=== PATIENT | male | born 1995 | race Caucasian/White ===

== ENCOUNTER 2017-03-06 22:52 | Emergency (ER) | payer OTHER ==
[~2017-03-06] VITALS: Ht 195.6 cm; Wt 73.6 kg
[~2017-03-06 22:52] MED LIST: NOMED
[2017-03-06 23:15] VITALS: BP 116/71; PULSE 94; RESP 16; O2SAT 100
--- NOTE | 2017-03-07 00:09 | ED.REPORT ---
HPI-Psychiatric Illness Date of Service Mar 07, 2017 ED Provider: Miky Mills MD Pt is a 22 y/o male with no previous psychiatric diagnosis presenting to the ED with his father for a mental health evaluation. Two months ago, the patient took LSD before and flew over to [place]. In [place], he was hospitalized for what sound like a first episode of bipolar disorder at which time he was experiencing hallucinations, aggression, insomnia, lisette. He was admitted to a psych unit and stabilized. The patient was discharged on Depakote , Risperidone, and Trazodone. He was doing well and taking college courses again. 3-4 weeks ago, he experienced slurred speech and constipation which was thought to be due to his Risperidone and his dose was reduced to one third of the prior. For the past 3 days, he is experiencing a similar manic episode and is experiencing delusions, aggressive behavior towards his father (pushing and shoving), auditory and visual hallucination, and insomnia. The patient states that he "wants to not be consumed by the music, but to guide the music". His goal tonight is to sleep on his own and to "go to happy places with happy thoughts and remember his dreams". He denies illicit drug or alcohol use. There are no medical complaints. Nursing Notes Stated Complaint: MENTAL HEALTH BIPOLAR Chief Complaint: Psychiatric Complaint Nursing Notes Reviewed: Yes Allergies: Coded Allergies: lactose (Verified Allergy, Unknown, 03/06/17) Miscellaneous Medications No Historical Medication (No Historical Medication) Ea General Time Seen by MD: 23:29 Chief Complaint Other (mental health eval) Hx Obtained From: Patient, Other family... (Father) Arrived By: Walk-in Onset Occurred: 3 days ago Symptom Duration: Since onset Severity: Current: No pain currently Severity: Maximum: No pain Associated with: Reports: Delusions Recent Healthcare: Recent doctor visit Similar Sx Previous: Yes Risk-Psychiatric Illness Suicide Risk Stratification RF Statements: Risk factors N/A Past Medical History Past Medical History No official psychiatric diagnosis Past Surgical History RT hand surgery Family History Bipolar disorder. Smoking History Former Smoker Social History Alcohol Use: Denies alcohol use Drug Use: Denies drug use Other Social History: Good social support Ambulatory Status Independent Review of Systems Psychiatric: Reports: Change mental status, Delusional, Hallucinations, auditory, Hallucinations, visual, Hostile, Insomnia Complete sys rev & neg: except as marked. Physical Exam Initial Vital Signs Vital Signs (First) Date Time Temp Pulse Resp B/P Pulse Ox O2 Delivery O2 Flow Rate FiO2 03/06/17 23:15 36.5 94 16 116/71 100 Room Air Initial VS: Reviewed, Vital signs normal Head / Eyes: Atraumatic, Normocephalic, PERRL Neck: Supple, Full range of motion Respiratory: No respiratory distress Cardiovascular: Intact distal pulses Abdomen / GI: No distention Extremities: Vascular intact, Neuro intact, No swelling, No tenderness Skin: Warm, Dry, No cyanosis General/Constitutional: Awake, Alert, Cooperative Drowsy, arousable Neurologic: Oriented X3, Speech NL, No motor deficits, No sensory deficits Psychiatric: Affect NL, Not suicidal, Not homicidal Abnormal Thinking / Perception: Positive: Tangential thinking Re-Eval/Medical Decision Med Decision/Clinical Course 22-year-old with apparent bipolar disorder recent onset, presents now with increasing delusional behavior and some mild aggression towards his father. He is voluntary patient with no suicidality or homicidality. They are advised to return in the morning for follow-up ulcers social science instructor here. They are advised to return promptly if any change in his status occurs and he should become suicidal or homicidal. Otherwise he will present during business hours for psychiatric evaluation with social science instructor. Source of Hx: Old records, Family Re-Evaluation/Progress : Time of Eval: 00:25 Re-Evaluation/Progress Note: Pt rechecked. Discussed diagnosis. Informed the pt and his father of the plan to discharge; both understand and agree with plan. F/U instructions and RTER warning given. All questions addressed. Counseled Regarding: Diagnosis, Need for follow-up, When/why to return to ED Discharge & Departure Impression: Primary Impression: Bipolar mood disorder Active/Remission status: currently active Current bipolar episode type: manic Current episode severity: mild Qualified Code: F31.11 - Bipolar disorder, current episode manic without psychotic features, mild Additional Impressions: Insomnia Insomnia type: due to other mental disorder Qualified Code: F51.05 - Insomnia due to other mental disorder Psychosis Psychosis type: unspecified psychosis type Qualified Code: F29 - Unspecified psychosis not due to a substance or known physiological condition )( Condition at Discharge: No danger to self, No danger to others Disposition: Home Discharge Condition All VS Reviewed: Yes Condition: Stable Patient Instructions: Bipolar Disorder (ED) Additional Instructions: Return any time if the situation changes or becomes unstable. Return here tomorrow morning at 10 AM for social service evaluation. They can facilitate your evaluation at [facility] or arrange inpatient admission if that is appropriate. Good luck. Referrals: Antonella Garrido MD (PCP) Scribe Attestation Portions of this note were transcribed by Xavi Tim and Sunny Marrufo. I, personally performed the history, physical exam and medical decision- making;I reviewed and confirmed the accuracy of the information in the transcribed note. Signed by Xavi Tim and Sunny Marrufo, [place]. 03/06/17 0030 copies to: Antonella Garrido MD, Christopher W MD Mar 07, 2017 00:09 Xavi Tim Mar 07, 2017 00:17 SUNNY MARRUFO Mar 07, 2017 00:47
[2017-03-07] MEDS ORDERED: LORazepam 2 mg Tablet PO ONE (00:20)
[2017-03-07 00:38] VITALS: BP 117/74; PULSE 78; RESP 16; O2SAT 100
[2017-03-07] MEDS ORDERED: TRAZ-115 PO (11:37)
[2017-03-07] MEDS ORDERED: RISP4TAB2 PO (11:37)
[2017-03-07] MEDS ORDERED: DEP500ER PO (11:37)
[2017-03-07] MEDS ORDERED: QUET50TA55 PO (13:40)
[2017-03-07] MEDS ORDERED: DIVA500T14 PO (13:40)
[2017-03-07] MEDS ORDERED: RISP1TAB3 PO (13:40)
== END 2017-03-07 00:40 | disposition home or self-care (01) ==
LOC: SED 22:52
DX: F31.11 Bipolar disorder, current episode manic without psychotic features, mild (principal); F51.05 Insomnia due to other mental disorder; F29 Unspecified psychosis not due to a substance or known physiological condition; Z87.891 Personal history of nicotine dependence; E73.9 Lactose intolerance, unspecified

== ENCOUNTER 2017-03-07 10:35 | Emergency (ER) | payer OTHER ==
[~2017-03-07] VITALS: Ht 195.6 cm; Wt 72.7 kg
[2017-03-07 10:58] VITALS: BP 119/82; PULSE 96; RESP 16; O2SAT 97
[2017-03-07 11:18] VITALS: BP 119/82; PULSE 96; RESP 16; O2SAT 97
[2017-03-07] MEDS ORDERED: DEP500ER PO (11:37)
[2017-03-07] MEDS ORDERED: TRAZ-115 PO (11:37)
[2017-03-07] MEDS ORDERED: RISP4TAB2 PO (11:37)
--- NOTE | 2017-03-07 12:17 | ED.REPORT ---
HPI-Psychiatric Illness Date of Service Mar 07, 2017 ED Provider: Eleonora Paige MD History of Present Illness: Seen last night Pt is a 22 y/o male with no previous psychiatric diagnosis presenting to the ED with his father for a mental health evaluation. Two months ago, the patient took LSD before and flew over to [place]. In [place], he was hospitalized for what sound like a first episode of bipolar disorder at which time he was experiencing hallucinations, aggression, insomnia, lisette. He was admitted to a psych unit and stabilized. The patient was discharged on Depakote, Risperidone, and Trazodone. He was doing well and taking college courses again. 3-4 weeks ago, he experienced slurred speech and constipation which was thought to be due to his Risperidone and his dose was reduced to one third of the prior. For the past 3 days, he is experiencing a similar manic episode and is experiencing delusions, aggressive behavior towards his father (pushing and shoving), auditory and visual hallucination, and insomnia. The patient states that he "wants to not be consumed by the music, but to guide the music". His goal tonight is to sleep on his own and to "go to happy places with happy thoughts and remember his dreams". He denies illicit drug or alcohol use. There are no medical complaints. 22-year-old with apparent bipolar disorder recent onset, presents now with increasing delusional behavior and some mild aggression towards his father. He is voluntary patient with no suicidality or homicidality. They are advised to return in the morning for follow-up with social work associate here. They are advised to return promptly if any change in his status occurs and he should become suicidal or homicidal. Otherwise he will present during business hours for psychiatric evaluation with social work associate. Presents to the ED today for help as above. 22 year old male with recent diagnoses of bipolar disorder and schizophrenia presents to the ER accompanied by his father per discharge instructions to return for blood work today. He was seen last night in the department for 3 days of insomnia, and is still unable to sleep. Patient lives at home with his father and is followed by [facility], but has been experiencing difficulty arranging an appointment with a psychologist or psychiatrist. However, he has now gone through the initial evaluation at [facility] and is scheduled for an appointment next week, but he states this date is too far out due to the severity of his recent manic and depressive episodes and his ongoing insomnia. Father lowered patient's Risperidone dose was lowered from 1mg to 0.5mg in the morning, and from 3mg to 1mg at night due to adverse side effects. He also takes Depakote 500mg daily. Nursing Notes Stated Complaint: BLOOD WORK Chief Complaint: General Complaint Nursing Notes Reviewed: Yes Allergies: Coded Allergies: lactose (Verified Allergy, Unknown, 03/06/17) Scheduled Divalproex ER (Depakote ER) 500 Mg Tablet 500 MG PO DAILY *DAILY USE ONLY* Swallowed whole without chewing to avoid local irritation of the mouth and throat. Divalproex ER (Divalproex ER) 500 Mg Tab.er.24h 500 MG PO BID *DAILY DOSING ONLY* Swallowed whole without chewing to avoid local irritation of the mouth and throat. Quetiapine Fumarate (Quetiapine Fumarate) 50 Mg Tablet 50-100 MG PO HS Risperidone (Risperidone) 4 Mg Tablet 4 MG PO DAILY Risperidone (Risperidone) 1 Mg Tablet 1-3 MG PO HS Trazodone (Trazodone) 50 Mg Tablet 50 MG PO HS Miscellaneous Medications No Historical Medication (No Historical Medication) Ea General Time Seen by MD: 12:13 Chief Complaint Other (Insomnia) Hx Obtained From: Patient Arrived By: Walk-in Onset Occurred: 3 days ago Symptom Duration: Since onset Related History: Reports: Bipolar disorder, Schizophrenia Recent Healthcare: Recent doctor visit Similar Sx Previous: Yes Risk-Psychiatric Illness Suicide Risk Stratification Suicide Risk Factors - Adult: : Prior psych admission RF Statements: Risk factors reviewed Past Medical History Past Medical History Bipolar disorder Schizophrenia Past Surgical History RT hand surgery Family History Bipolar disorder. Smoking History Former Smoker Social History Alcohol Use: Denies alcohol use Drug Use: Denies drug use Other Social History: Good social support Ambulatory Status Independent Review of Systems Review of Systems Note: +Lisette Psychiatric: Reports: Delusional, Depression, Insomnia, Denies: Homicidal ideation, Hostile, Suicidal ideation, Unable to control self Complete sys rev & neg: except as marked. Physical Exam Initial Vital Signs Vital Signs (First) Date Time Temp Pulse Resp B/P Pulse Ox O2 Delivery O2 Flow Rate FiO2 03/07/17 10:58 96 16 119/82 97 Room Air Initial VS: Reviewed Head / Eyes: Atraumatic, Normocephalic Neck: Supple, Non-tender, Full range of motion Abdomen / GI: Soft, Non-tender, No guarding, No rebound, No distention Extremities: Vascular intact, Neuro intact, No swelling, No tenderness Skin: Warm, Dry, No cyanosis General/Constitutional: Awake, Alert, Well appearing, Well developed, Well nourished Neurologic: Oriented X3, Speech NL, No motor deficits, No sensory deficits Psychiatric: Not suicidal, Not homicidal Abnormal Mood/Affect: Positive: Flat affect Somewhat tangential, but redirectable. Cooperative. ENT: Airway patent, Mucous membranes moist Respiratory / Chest: Breath sounds NL, Breath sounds = bilat, No respiratory distress, No rales, No rhonchi, No wheezing Cardiovascular: Heart rate NL, Regular rhythm, Heart sounds NL, Peripheral circulation NL Interpretation & Diagnostics Lab Results Interpretation Result Diagram: 03/07/17 1230 03/07/17 1230 Test 03/07/17 12:30 White Blood Count 6.3th/mm3 (3.8-10.1) Red Blood Count 4.61mil/mm3 (4.40-5.80) Hemoglobin 13.3g/dL (13.8-17.2) Hematocrit 40.4% (41.0-50.0) Mean Corpuscular Volume 87.6fL (81-100) Mean Corpuscular Hemoglobin 28.9pg (27.0-35.0) Mean Corpuscular Hemoglobin Concent 32.9% (32.0-37.0) Red Cell Distribution Width 12.9% (12.3-15.4) Platelet Count 173bil/L (150-400) Neutrophils (%) (Auto) 59.1% (40-74) Lymphocytes (%) (Auto) 27.7% (14-46) Monocytes (%) (Auto) 10.8% (4-12) Eosinophils (%) (Auto) 1.9% (0-5) Basophils (%) (Auto) 0.3% (0-3) Hold Urine Received (Received) Sodium Level 138mEq/L (134-144) Potassium Level 4.6mEq/L (3.5-5.2) Chloride Level 100mEq/L (97-108) Carbon Dioxide Level 21mmol/L (18-29) Blood Urea Nitrogen 8mg/dL (6-20) Creatinine 0.78mg/dL (0.76-1.27) Estimat Glomerular Filtration Rate 135mL/min (>59) Glucose Level 101mg/dL (60-99) Calcium Level 9.5mg/dL (8.5-10.1) Total Bilirubin 0.6mg/dL (0.0-1.2) Aspartate Amino Transf (AST/SGOT) 19U/L (0-50) Alanine Aminotransferase (ALT/SGPT) 8U/L (0-44) Alkaline Phosphatase 51U/L (25-150) Total Protein 7.3g/dL (6.4-8.4) Albumin 4.5g/dL (3.4-5.0) Thyroid Stimulating Hormone (TSH) 2.240uIU/mL (0.450-4.500) Hold Humphrey Top Tube Received (Received) Valproic Acid (Depakene) Level 52ug/mL (50-125) Re-Eval/Medical Decision Source of Hx: Old records Re-Evaluation/Progress : Time of Eval: 13:45 Re-Evaluation/Progress Note: Patient is happy with the plan and talking with our director social welfare. Resources will be given. Return precautions given. All other questions addressed. Counseled Regarding: Diagnosis, Lab results, Need for follow-up, When/why to return to ED Discharge & Departure Impression: Primary Impression: Bipolar mood disorder Additional Impression: Insomnia )( Condition at Discharge: No danger to self, No danger to others, No suicidal ideation, No homicidal ideation Disposition: Home Discharge Condition All VS Reviewed: Yes Condition: Stable Patient Instructions: Bipolar Disorder (DC) Additional Instructions: I'm sorry it has been so difficult to get to the care you need. I am going to suggest some medication changes that will hopefully help your mood stay in the middle (not depressed, not manic) and not make you too sedated. I did do blood work today (CBC, CMP, TSH, Depakote level) and your providers can access that as needed. 1. Increase the Depakote ER to 500mg am and pm 2. use 1-3 mg of risperdone at night - up to 3 if you are feeling hypomanic or had trouble sleeping the night before. It makes you really sleepy when you are not manic so I'm going to suggest you DO NOT take it in the morning. 3. If you find that you are heading to fully manic (seeing things, hearing things, can't sleep after the risperdone, not making any sense), then take Seroquel 50mg-100-mg. If it continues to get worse, you will problably need to come to the ER. I've sent all these prescriptions electronically to [facility]. Please review all of this, and the effects, with your new psychiatric provider. I hope you get this all sorted out and get back to school! Return to the ER if you develop any worsening or concerning symptoms. Referrals: Antonella Garrido MD (PCP) Pauibe Attestation Portions of this note were transcribed by Juwan Gracia. I, Dr. Paige, personally performed the history, physical exam and medical decision-making; I reviewed and confirmed the accuracy of the information in the transcribed note. Signed by: Negrita Nash, 03/07/2017 at 13:47 copies to: Antonella Garrido MD, Shawna L MD Mar 07, 2017 12:17 JUWAN GRACIA Mar 07, 2017 12:21
[2017-03-07 12:38] LABS: BASOPHILS % (AUTO) 0.3 % (0-3); EOSINOPHILS % (AUTO) 1.9 % (0-5); MONOCYTES % (AUTO) 10.8 % (4-12); Mean Corpuscular Hemoglobin 28.9 pg (27.0-35.0); Mean Corpuscular Volume 87.6 fL (81-100); NEUTROPHILS % (AUTO) 59.1 % (40-74); Platelet Count 173 bil/L (150-400)
[2017-03-07] MEDS ORDERED: RISP1TAB3 PO (13:40)
[2017-03-07] MEDS ORDERED: DIVA500T14 PO (13:40)
[2017-03-07] MEDS ORDERED: QUET50TA55 PO (13:40)
== END 2017-03-07 14:12 | disposition home or self-care (01) ==
LOC: SED 10:35
DX: F31.9 Bipolar disorder, unspecified (principal); G47.00 Insomnia, unspecified; Z87.891 Personal history of nicotine dependence; Z91.011 Allergy to milk products

== ENCOUNTER 2017-03-09 05:13 | Inpatient (IN) | payer MEDICAID, OTHER ==
[~2017-03-09 05:13] MED LIST changes: +DEP500ER PO; +DIVA500T14 PO; +QUET50TA55 PO; +RISP1TAB3 PO; +RISP4TAB2 PO; +TRAZ-115 PO
[2017-03-09 05:17] VITALS: BP 118/82; PULSE 130; RESP 22; O2SAT 100
--- NOTE | 2017-03-09 06:05 | ED.REPORT ---
HPI-Psychiatric Illness Date of Service Mar 09, 2017 ED Provider: Garrett Francis MD A 22 year old male with a history of bipolar presents to the ED complaining of lisette and difficulty sleeping onset 6 days ago. Patient reports being up all night. He asks for his hand to be held in the room. Per Dad, patient was recently manic for a stretch of 3 days, the patient visiting the ED on 2016 and receiving medication to help him sleep. In terms of psychiatric history , patient started experiencing anxiety, difficulty sleeping, and weight loss ( 20-30 pounds) into his second year of college at [employer]. He tried to self medicate himself with drugs and alcohol to alleviate stress from college. At the end of his second quarter into the second year, he tried LSD which put him in a "bad state of mind." He returned from a spring break trip to [place] 4 weeks ago, where he was hospitalized for over 1 week and diagnosed with bipolar, seasonal depression, and possible schizophrenia. Per Dad, patient spent 1.5 days in [place] after hospital discharge where he appeared normal. He came home, enrolled in [employer] for a while, and seemed normal until 6 days ago when lisette onset. Dad reports that patient currently has manic obsessions with video games and music. Associated symptoms include homicidal ideations towards a girl named Kristie that the patient met in the hospital in [place]. In regards to this girl, the patient states that "I could eat Kristie alive ," I want to crush her neck in my fist," and "I have an iron will." The thought of this girl Kristie interrupts his sleep. He also reports fever and chills, but his Dad has not been able to take his temperature at home. Dad reports that patient has recently been reporting that he is hot and that he has been describing images of hell and hell hounds. Patient denies any suicidal ideations , or vomiting. He recently injured his finger playing basketball. Nursing Notes Stated Complaint: CANT SLEEP, BIPOLAR Chief Complaint: Psychiatric Complaint Nursing Notes Reviewed: Yes Allergies: Coded Allergies: lactose (Verified Allergy, Unknown, 03/06/17) Scheduled Divalproex ER (Divalproex ER) 500 Mg Tab.er.24h 500 MG PO BID *DAILY DOSING ONLY* Swallowed whole without chewing to avoid local irritation of the mouth and throat. Quetiapine Fumarate (Quetiapine Fumarate) 50 Mg Tablet 50-100 MG PO HS Risperidone (Risperidone) 4 Mg Tablet 4 MG PO DAILY Risperidone (Risperidone) 1 Mg Tablet 1-3 MG PO HS Trazodone (Trazodone) 50 Mg Tablet 50 MG PO HS Miscellaneous Medications No Historical Medication (No Historical Medication) Ea General Time Seen by MD: 06:02 Chief Complaint Manic Hx Obtained From: Patient, Other family... (Father) Arrived By: Walk-in Onset Occurred: 6 days ago Symptom Duration: Since onset Progression Since Onset: Unchanged Severity: Current: No pain currently Severity: Maximum: No pain Recent Healthcare: Recent doctor visit (ED visit on 03/07/2017) Similar Sx Previous: No Risk-Psychiatric Illness Suicide Risk Stratification RF Statements: Risk factors N/A Past Medical History Past Medical History Notes: No psychiatrist. Past Medical History Bipolar disorder Seasonal affective disorder "Possibly Schizophrenia" according to Father. 4 weeks ago, was hospitalized in [facility] for over 7 days and diagnosed with bipolar and seasonal affective disorder, and "possible schizophrenia" according to Father. He had no diagnosed history of psychological conditions before this. Was seen at [facility] yesterday. Current Medications Include: Depakote 500mg, bid Risperidone from ED, up to 3 doses per day. Seroquel from ED, 50mg PRN 1-2 PO Past Surgical History RT hand surgery Family History Bipolar disorder. Grandmother on Father's side had bipolar onset age 35 and was medicated for 5 years. She took herself off her medications after that and has been symptom free ever since. Aunt on Father's side currently dealing with depression, anxiety, and bipolar issues. Smoking History Former Smoker Social History no alcohol in past week. no THC in past week. Parents are . Recently dropped out of [employer], and is currently enrolled in [employer]. Currently lives with father in [facility]. Got back from [place], [place] Spring Break trip 4 weeks ago. He originally went with his mother, but father showed up after the patient became hospitalized. Patient reports that he is not spiritism. Alcohol Use: Denies alcohol use Drug Use: Denies drug use Other Social History: Good social support Ambulatory Status Independent Review of Systems Review of Systems Note: heat sensation. Constitutional: Reports: Chills, Fever, Recent wt loss GI: Denies: Vomiting Psychiatric: Reports: Anxiety, Homicidal ideation, Insomnia, Denies: Suicidal ideation Complete sys rev & neg: except as marked. Physical Exam Initial Vital Signs Vital Signs (First) Date Time Temp Pulse Resp B/P Pulse Ox O2 Delivery O2 Flow Rate FiO2 03/09/17 05:17 36.5 130 22 118/82 100 03/09/17 08:59 Room Air Initial VS: Reviewed General/Constitutional: Awake, Alert Neurologic: Oriented X3, Speech NL Abnormal Mood/Affect: Positive: Anxious, Fearful, Flat affect, Inappropriate Abnormal Thinking / Perception: Positive: Delusions - paranoid, Homicidal, no plan, Insight abnormal, Judgment abnormal, Loose associations, Perseveration, Tangential thinking Head / Eyes: Atraumatic, Normocephalic, PERRL, EOMI ENT: Atraumatic, Mucous membranes moist Respiratory / Chest: Atraumatic, Breath sounds NL, Breath sounds = bilat, No respiratory distress, No rales, No rhonchi, No wheezing Cardiovascular: Heart rate NL, Regular rhythm, Heart sounds NL, No gallop, No murmurs, No rubs Abdomen: No guarding, No rebound Skin: Warm, Dry Upper Extremity / MS: No swelling, No edema Interpretation & Diagnostics Lab Results Interpretation Test 03/09/17 06:45 03/09/17 07:10 03/09/17 07:15 Valproic Acid (Depakene) Level 61ug/mL (50-125) Hold Humphrey Top Tube Received (Received) Hold Urine Received (Received) Re-Eval/Medical Decision Source of Hx: Old records Re-Evaluation/Progress #1: Time of Eval: 06:22 Re-Evaluation/Progress Note: Patient is interested in admission. Explained plan for admission to hospital pending inpatient mental health treatment certification. Patient understands and agrees with the plan. All questions addressed. Re-Evaluation/Progress #2: Time of Eval: 06:35 Re-Evaluation/Progress Note: Rechecked patient and asked if they are a current smoker. Consultation #1: Call Returned at: 06:25 Note: Discussed patient case with charge nurse at [facility]. Consultation #2: Call Returned at: 09:04 Note: Discussed patient case and plan for in-patient mental health care certification with [facility] from bed cert. Consultation #3: Call Returned at: 09:41 Note: Discussed patient case with Holli Campbell, who saw the patirnt yesterday. Holli agrees to advocate the patient's case with mental health resources. Counseled Regarding: Diagnosis, Lab results, Need for admission Discharge & Departure Impression: Primary Impression: Psychosis Disposition: ADMITTED TO HOSPITAL Referrals: Antonella Garrido MD (PCP) Pauibsarah Attestation Portions of this note were transcribed by Gonzalo Ellis. I, Dr. Francis personally performed the history, physical exam and medical decision-making; I reviewed and confirmed the accuracy of the information in the transcribed note. Signed by: Negrita Lindsey, 03/09/2017, 1009. copies to: Antonella Garrido MD, Kirk H MD Mar 09, 2017 06:05 Gonzalo Ellis Mar 09, 2017 06:16
[2017-03-09 08:59] VITALS: BP 113/73; PULSE 78; RESP 16; O2SAT 100
[2017-03-09] MEDS ORDERED: LORazepam 2 mg Tablet PO ONE (09:40)
[2017-03-09] MEDS ORDERED: OLANZapine Zydis ODT 5 mg Tablet PO PRN (15:10)
--- NOTE | 2017-03-09 15:59 | HP ---
[address] [address] HISTORY AND PHYSICAL PATIENT: GIOVANNA BALBUENA : 1995 MR#: [id number] ADMIT: 03/09/2017 JOB ID: [id number] IDENTIFICATION OF PATIENT: The patient is a 22-year-old male who was admitted through the emergency department after three separate visits in the past four days. The patient reportedly presented with increasing concerns of paranoia, hallucinations, delusions with hyperreligious themes and had noted previous history of psychiatric hospitalization in [place], [place] within the past month. It was felt that the patient was increasingly unsafe in the parents' care. CHIEF COMPLAINT: "I'm really worried about my mom and dad. They need to listen to me. I have many words from God." HISTORY OF THE PRESENT ILLNESS: As stated above, the patient is a 22-year-old male who presented to the emergency department with evidence of increasing difficulties with paranoia, delusions, significant hallucinations of hearing the voices of God, the devil, open identification that he believes that he is an Archangel. Over the past month, the patient reportedly had gone to [place] with his mother, and during the process, was actually hospitalized for approximately one week on a psychiatric unit and diagnosed with bipolar disorder and possible schizophrenia. The patient reportedly has been prescribed doses of Depakote, Risperdal, Seroquel and trazodone per report. Reportedly the patient has had significant difficulties with his return and over the past several days the patient has notably expressed significant concern of increasing agitation, statements that he wanted to harm a girl names Kristie and that he could crush her neck in his fist. The patient reportedly has had significant visual hallucinations indicating that he has seen many devils and angels. He openly identified beliefs that he is the Archangel, and at one point, believed that he potentially was seeing himself. In meeting with myself, the patient had great difficulties with tracking, following conversation. He identified that he evidently had his first psychotic break recently but did not understand the verbiage. The patient identified that he previously was in attendance at [facility] after graduating from [employer] with 12 years of attendance. The patient states that he attended on an academic full ride scholarship and stated that it became too overwhelming. He reports that after his return from [place] he had enrolled at [employer] and continued to have difficulties and has withdrawn at this time. He reports that he did begin using substances within the first month of his arrival on the campus at [facility]. The patient identified that he had met several individuals and identifies Sarmad as his right hand man, his guardian and protector. He reports that he began experimenting with various substances including daily usage of marijuana up to 1-2 g. He admitted to various prescription pills and also admitted to taking his first hit of acid before a trip to [place]. He identified periodic usage of alcohol but denied any daily usage. PAST MEDICAL HISTORY: Is noted for allergies to LACTOSE. CURRENT MEDICATIONS: Include: 1. Depakote 500 mg b.i.d. 2. Risperdal 4 mg q. a.m., 1-3 mg q.h.s. 3. Trazodone 50 mg q.h.s. 4. Seroquel 50-100 mg q.h.s. Other medical history was reviewed through the emergency department. I agree with findings. PAST PSYCHIATRIC HISTORY: Substantial for the above information. He reportedly is currently connected with [employer]. SOCIAL HISTORY: Currently the patient lives at home with the father. Mother and father were at the patient's age of 20. He has one younger brother currently living with his mother, age 17. He is currently unemployed. He admits to the above usage of substances, alcohol. He denies any history of trauma. FAMILY HISTORY: Significant for history of bipolar disorder in a paternal grandmother who evidently was medicated at the age of 35 for approximately five years and discontinued medications thereafter. There is also a paternal aunt who has been treated for depression, anxiety and bipolar issues as well. DEVELOPMENTAL HISTORY: As noted above, the patient has approximately 1-1/2 years at [employer]. 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 MENTAL STATUS EXAMINATION: General appearance: The patient was quite loose, disorganized. He needed redirection and comfort throughout the course of conversation. He was dressed in scrub attire. He is quite tall and thin on approach. His speech is of normal tone, frequency and volume but continues to be somewhat tangential. His thought process shows evidence of racing thoughts, loose and disorganized thinking. He has perseveration in reference to hyperreligious themes. His thought content: He denied any evidence of suicidal or homicidal ideation. He evidently has shown some significant agitation in reference to a girl named Kristie. He admits to hallucinations including seeing angels, devils and demons. He denies any tactile olfactory hallucinations. He was alert, oriented to person, place, time, situation. His attention and concentration are poor. Insight and judgment are poor. IMPRESSION: AXIS I 1. Psychosis, not otherwise specified. 2. Rule out schizophreniform disorder. 3. Rule out schizophrenia, paranoid type. 4. Polysubstance use disorder, chronic, severe. AXIS II Deferred. AXIS III None. AXIS IV Stressors are noted for significant substance abuse issues, transition of life. AXIS V Global assessment of functioning of current 20. PLAN: 1. Recommendations for continuation of Depakote 500 mg b.i.d. 2. Discontinuation of Risperdal with introduction of Zyprexa 10 mg q.h.s. with additional p.r.n. of 10 mg q.6 hours. 3. Discontinuation of Seroquel. 4. Continuation of trazodone 50 mg at h.s. for sleep. 5. Recommendations for possible chemical dependency evaluation to follow.
[2017-03-09] MEDS: Divalproex (QD) 500 mg ER24 Tablet PO SCH ×3 (20:30→22:12)
[2017-03-09] MEDS ORDERED: OLANZapine Zydis ODT 5 mg Tablet PO SCH (21:00)
[2017-03-10] MEDS: hydrOXYzine Pamoate 25 mg Capsule PO PRN ×2 (03:42→07:56)
[2017-03-10] MEDS: Benzocaine-Menthol Lozenge 2/Pkg PO PRN (04:22)
[2017-03-10] MEDS: LORazepam 1 mg Tablet PO PRN ×3 (04:40→19:00)
[2017-03-10] MEDS: Divalproex (QD) 500 mg ER24 Tablet PO SCH ×2 (07:56→20:30)
[2017-03-10] MEDS ORDERED: risperiDONE 2 mg Tablet PO SCH ×2 (08:30→21:00)
[2017-03-10] MEDS ORDERED: OLANZapine Zydis ODT 5 mg Tablet PO ONE (09:40)
[2017-03-10 10:55] VITALS: BP 106/64; PULSE 79; RESP 16
--- NOTE | 2017-03-10 12:16 | PROG NOTE ---
[address] [address] PROGRESS NOTE PATIENT: GIOVANNA BALBUENA : 1995 MR#: [id number] ADMIT: 03/09/2017 JOB ID: [id number] DATE: 03/10/2017 CHIEF COMPLAINT: "I am so sorry, I did not mean to hurt anyone, I heard the voices tell me to hit this rimma." HISTORY OF PRESENT ILLNESS: As stated above, the patient did identify significant regret and remorse in reference to an incident that occurred this morning. Evidently, the patient states that he was having struggles with fears of taking a shower, and there was another male patient who was encouraging the patient not to be afraid of water. He reports that he began feeling overwhelmed, hearing voices telling him to hit this individual, identifying that he believes that he was Satvernell figueroa. The patient was able to regroup, redirected by myself, openly identifying that he is aware that it was just his mind playing tricks on him. He did reference significant ongoing difficulties with hyper-orthodoxy themes, difficulties with feelings that he is being chased by various demons and negative encounters. He indicates that last evening that he believed that he had been called various names by staff and other patients, and believes that he is in great jeopardy of his life. He appears to be mildly paranoid but was able to receive redirection and encouragement by myself. He openly identifies that he knows that the voices and the thoughts are irrational and that he is trying to actually control them. In reviewing other history the patient did identify that he hopes that his father will visit. He openly stated that he does not want to have any contact with his mother and indicated that she is a very controlling and evil person. He identified that when he went off to college that he finally felt free for the first time and began using various drugs and alcohol with an intent to rebel against her control. He indicates that his father was very supportive and encouraging, indicating that he just wanted the best for him. OBJECTIVE: On mental status exam, the patient is quite paranoid, anxious, hypervigilant. He has racing thoughts throughout. He was able to receive calm and redirection by myself. His speech is pressured at times. His mood is euphoric, dysphoric. Affect is elevated. His thought process shows evidence of racing thoughts, flight of ideas, loose and disconnected thinking. Thought content, he readily denies any evidence of suicidal ideation. He indicates that he has had some agitation and aggressive thoughts. He admits to the above auditory and visual hallucinations. He indicates that he also feels that he is and hell. He was alert, oriented to time and place. His attention and concentration are poor. Insight and judgment are poor. PHYSICAL EXAMINATION: Vital signs are current. Temperature is 36.7, pulse 78, respirations 16, BP 113/73. MEDICATION REVIEW: Includes: 1. Zyprexa 10 mg q.6 h. p.r.n. for agitation and 10 mg q.h.s. 2. Trazodone 50 mg q.h.s. 3. Depakote 500 mg b.i.d. 4. P.r.n. doses of Ativan 1 mg q.4 h. ASSESSMENT: AXIS I 1. Psychosis, not otherwise specified. 2. Polysubstance use disorder. AXIS II Deferred. AXIS III None. AXIS IV Stressors are noted for significant polysubstance use, significant current psychoses. AXIS V Global Assessment of Functioning current 20. PLAN: 1. Recommendation is for titration of Depakote to 1000 mg b.i.d. 2. Titration of Zyprexa to 20 mg q.h.s., with continuation of p.r.n. noted. 3. Recommendation is for continuation of hospitalization based on patient's significant difficulties with acute psychoses. 4. OLAF, the case management rn, will be in contact with family members for collaborative information gathering and additional recommendations.
[2017-03-10] MEDS ORDERED: diphenhydrAMINE 50 mg Capsule PO ONE (20:33)
[2017-03-10] MEDS ORDERED: Haloperidol 5 mg/mL Inj IM PRN (20:40)
[2017-03-10] MEDS: diphenhydrAMINE 50 mg Capsule PO PRN (20:50)
[2017-03-11] MEDS: Divalproex (QD) 500 mg ER24 Tablet PO SCH ×2 (07:53→20:09)
[2017-03-11 08:10] VITALS: BP 142/83; PULSE 128; RESP 20
[2017-03-11] MEDS: LORazepam 1 mg Tablet PO PRN ×2 (08:16→17:32)
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
[2017-03-12] MEDS: Divalproex (QD) 500 mg ER24 Tablet PO SCH ×2 (08:18→20:34)
[2017-03-12] MEDS: LORazepam 1 mg Tablet PO PRN ×2 (08:19→13:54)
[2017-03-12] MEDS: hydrOXYzine Pamoate 25 mg Capsule PO PRN (08:19)
--- NOTE | 2017-03-12 12:23 | PROG NOTE ---
[address] [address] PROGRESS NOTE PATIENT: GIOVANNA BALBUENA : 1995 MR#: [id number] ADMIT: 03/09/2017 JOB ID: [id number] DATE: 03/12/2017 CHIEF COMPLAINT: "No response." HISTORY OF PRESENT ILLNESS: As stated above, the patient was seen resting in his room. He reportedly had a very difficult evening and morning per nursing report. I have reviewed documentation, which clearly indicates the patient has shown significant difficulties with paranoia, delusions, hallucinations and mood lability. The patient reportedly has identified to various staff members that he believes another patient is the devil, that she is contaminating water. He openly identifies visualizing demons surrounding this patient, and he has been fairly intrusive. He reportedly has had a collection of various water cups in his room and building towers, which he claims are identified as the tower of [employer]. The patient has made repeated hyperreligious themes and has a noted background in [employer] involvement with [employer] private [employer] attendance. OBJECTIVE: On mental status exam, the patient is sleeping. Mental status exam was not completed. However, I reviewed notes from the nursing staff delineating significant factors of psychoses. PHYSICAL EXAMINATION: Vital signs from yesterday had temperature 36.1, pulse 128, respirations 20, BP 142/83. MEDICATION REVIEW: Includes: 1. Zyprexa 30 mg q.h.s. 2. P.r.n. doses of Haldol 10 mg q.4 h. p.o. or IM. 3. Benadryl 50 mg q.4 h. p.o. or IM. 4. Depakote 1000 mg b.i.d. 5. Vistaril 50 mg q.4 h. p.r.n. ASSESSMENT: AXIS I 1. Psychosis, not otherwise specified. 2. Polysubstance use disorder. 3. Rule out schizophreniform disorder. AXIS II Deferred. AXIS III None. AXIS IV Stressors are noted for substance abuse issues, disturbance of mental health. AXIS V Global Assessment of Functioning current 20. PLAN: 1. Recommendation is for scheduled doses of Haldol 10 mg b.i.d., with combined dose administration of Cogentin 1 mg b.i.d. 2. Depakote level to be obtained tomorrow morning for further titration. 3. Continuation of therapeutic support and redirection with staff involvement.
[2017-03-12] MEDS: diphenhydrAMINE 50 mg Capsule PO PRN (13:54)
[2017-03-13] MEDS: LORazepam 1 mg Tablet PO PRN ×2 (07:56→15:16)
[2017-03-13 08:30] VITALS: BP 117/78; PULSE 107; RESP 18
[2017-03-13] MEDS: Divalproex (QD) 500 mg ER24 Tablet PO SCH ×2 (08:52→20:28)
[2017-03-13] MEDS: hydrOXYzine Pamoate 25 mg Capsule PO PRN (08:55)
[2017-03-13] MEDS: Alum-Mag Hydrox-Simeth 30 mL Suspension PO PRN (20:28)
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
[2017-03-14 08:50] VITALS: BP 120/84; PULSE 93; RESP 16
[2017-03-14] MEDS: Divalproex (QD) 500 mg ER24 Tablet PO SCH ×2 (09:40→20:17)
[2017-03-14] MEDS: LORazepam 1 mg Tablet PO PRN ×3 (09:41→23:44)
--- NOTE | 2017-03-14 11:48 | PROG NOTE ---
[address] [address] PROGRESS NOTE PATIENT: GIOVANNA BALBUENA : 1995 MR#: [id number] ADMIT: 03/09/2017 JOB ID: [id number] DATE: 03/14/2017 CHIEF COMPLAINT: "I don't want to meet with the stenocaptioner, it scares me, will you be there to hold my hand." HISTORY OF PRESENT ILLNESS: As stated above, the patient identified that he is fearful of the upcoming court appearance tomorrow with applications for a 14 day order. I did inform him that we are going to ask the stenocaptioner for continuance of hospitalization, and he agreed that he knows that he is not ready to go home. He reportedly earlier spoke with the justice court deputy clerkhospice community liaison and stated that he was not quite sure whether he wanted actually to be in the hospital. He reportedly has also refused to sign the medication consents at this time. However, nursing staff were educated that they can continue to offer medications. He made intermittent eye contact with myself. He openly admitted to significant recent usage of LSD prior to his hospitalization. He stated that he had actually used quite a substantial amount of LSD prior to his trip to [place], and stated that when he returned back from [place], he took a few more tablets. He states that he received these from Sarmad, an individual from [facility]. OBJECTIVE/MENTAL STATUS EXAM: The patient continues to be quite paranoid, delusional, psychotic. He makes intermittent eye contact. His speech is slow and slurred. His mood is euphoric with significant less presentation. His affect is guarded. His thought process shows evidence of loose and disconnected thinking. He remains quite tangential. His thought content, he denied any evidence of suicidal or homicidal ideation. He admitted to significant hallucinations earlier today with nursing staff, identifying a MHA as the devil. He continues to experience auditory hallucinations. He was alert, oriented to person, with recollection of myself as his doctor. His attention and concentration are poor. Insight and judgment are poor. PHYSICAL EXAM: Vital signs of current: Temperature is 36.5, pulse 107, respirations 18, BP 117/76. MEDICATION REVIEW: Includes: 1. Haldol 10 mg b.i.d. 2. Ativan 2 mg p.o. or IM q.4 h. p.r.n. for anxiety, agitation. 3. Cogentin 1 mg b.i.d. 4. Zyprexa 30 mg q.h.s. 5. Haldol 10 mg q.4 h. p.r.n. p.o. or IM. 6. Benadryl 50 mg q.4 h. p.o. or IM. 7. Depakote 1000 mg b.i.d. ASSESSMENT: AXIS I: 1. Psychosis, not otherwise specified. 2. Polysubstance use disorder. 3. Rule out schizophreniform disorder. AXIS II: Deferred. AXIS III: None. AXIS IV: Stressors are noted for significant substance use issues, continuation of mental health impairment. AXIS V: Global Assessment of Functioning current 20. PLAN: 1. Recommendations for applications of a 14 day order for tomorrow. 2. Recommendations for continuation of offering all medications at this time, with titration of Haldol to 15 mg b.i.d. 3. Recommendations for consideration of taper and discontinuation of Zyprexa due to a limited benefit despite maximum daily dose over the past 72 hours.
[2017-03-15] MEDS: Divalproex (QD) 500 mg ER24 Tablet PO SCH ×2 (08:30→20:18)
--- NOTE | 2017-03-15 11:02 | PROG NOTE ---
[address] [address] PROGRESS NOTE PATIENT: GIOVANNA BALBUENA : 1995 MR#: [id number] ADMIT: 03/09/2017 JOB ID: [id number] DATE: 03/15/2017 CHIEF COMPLAINT: "You are a very kind and caring person. I know that my thoughts are not right." This per patient report. HISTORY OF PRESENT ILLNESS: As stated above, the patient did meet with myself this morning. He continues to be quite delusional, paranoid, actively hallucinating with hyperreligious themes. He reflected that he believes that he continues to see devils, demons and angels on the floor. He indicated last evening was not good. He, per nurse's staff report, was pacing in the hallways naked, had to be redirected back to his room and made various lewd comments. The patient eventually was able to go back to sleep, but had interrupted sleep throughout the evening hours. He has denied his morning medications. He underwent a court intervention and agreed to a 14 day order. OBJECTIVE: On mental status examination, he is quite loose, disorganized, has evidence of significant sedation. He makes intermittent eye contact. His speech is pressured at times. His mood is euphoric. His affect is incongruent. His thought process shows evidence of loose and disorganized thinking. He has difficulties with thought blocking throughout. He has continuation of perceptual distortion and paranoia. He has made no significant suicidal or homicidal statements, but continues to be somewhat agitated and easily set off by various peers. His mental state is significantly paranoid. He has obvious hallucinations, both auditory and visual, complex. He also admits to olfactory sensations every once in a while. He was alert, disoriented to time and place. He was able to recall myself by name. His attention and concentration are poor. Insight and judgment are poor. PHYSICAL EXAMINATION: Vital signs of current: Temperature is 36.2, pulse 93, respirations 16, BP 120/84. MEDICATION REVIEW: Includes: 1. Haldol 15 mg b.i.d. 2. Cogentin 1 mg b.i.d. 3. Zyprexa 30 mg q.h.s. 4. P.r.n. doses of Haldol 10 mg q.4 hours p.o. or IM. 5. Ativan 2 mg q.4 hours p.o. or IM. 6. Depakote 1000 mg b.i.d. ASSESSMENT: AXIS I 1. Psychosis, not otherwise specified. 2. Polysubstance use disorder. 3. Rule out schizophreniform disorder. AXIS II Deferred. AXIS III Deferred. AXIS IV Stressors are noted for substance use issues, current state of mental status. AXIS V Global assessment of functioning of current 20. PLANS: 1. Recommendations for discontinuation of Ativan due to fears of disinhibition. 2. Recommendations for initiation of lithium carbonate ER 300 mg b.i.d. 3. Consideration of discontinuation of Zyprexa with continuation of calibration and titration of Haldol to follow if there is no considerable improvement with lithium administration. 4. Continuation of MR 14 as noted.
[2017-03-15 13:13] VITALS: BP 122/81; PULSE 90; RESP 16
[2017-03-15] MEDS: Alum-Mag Hydrox-Simeth 30 mL Suspension PO PRN (19:06)
[2017-03-16] MEDS: Divalproex (QD) 500 mg ER24 Tablet PO SCH ×2 (08:14→20:12)
--- NOTE | 2017-03-16 10:56 | PROG NOTE ---
[address] [address] PROGRESS NOTE PATIENT: GIOVANNA BALBUENA : 1995 MR#: [id number] ADMIT: 03/09/2017 JOB ID: [id number] DATE: 03/16/2017 CHIEF COMPLAINT: "I really trust you, I will take the medicine, it just made me throw up yesterday." HISTORY OF PRESENT ILLNESS: As stated above, the patient did identify a willingness to take his morning medications. He initially had refused doses of Depakote indicating that it made him vomit yesterday. Nurses have tried to actually administer the medication twice this morning. The patient readily identified that yesterday he did gag on the medication stating that it was too big. I have discussed with encouragement that the patient needs to cooperate with all the medications and also agree to discontinue doses of Zyprexa which was dispensed previously at 30 mg q.h.s. with very limited improvement. I do feel that the patient's current combinations of lithium, Haldol and Depakote have shown significant improvement with the patient's mental process. He did spend some time today speaking with me about his previous drug usage including multiple hits of LSD. The patient identifies that he has not experienced auditory or visual hallucinations over the past 24 hours indicating that he no longer sees angels or demons on the unit. He reportedly slept all evening with approximately 8 hours of uninterrupted sleep. The patient's mother evidently visited him last evening per staff report. OBJECTIVE: On mental status examination, he is cooperative. He maintains good eye contact. He is much more coherent and actually communicates throughout the course of conversation with significant improvement. His speech is of normal tone, frequency and volume. His mood is notably significantly improved over the past 24 hours. His affect is much more congruent. His thought process shows no evidence of random flight of ideas. He has continued to be somewhat loose and disconnected and needs restructure and reorganization. He tends to address into a conversation about video games and various fantasy based movies. His thought content: He denied any evidence of suicidal or homicidal ideation. He denies any current evidence of paranoia. Identified that he has not seen angels or demons over the past 24 hours and is happy about this. He was alert, oriented to person with open identification of myself and place. His insight and judgment are gaining. PHYSICAL EXAM: Vital signs of current. Temperature is 35.9, pulse 90, respirations 16, BP 122/81. MEDICATION REVIEW: Includes: 1. [place] carbonate 300 mg b.i.d. 2. Haldol 15 mg b.i.d. 3. Cogentin 1 mg b.i.d. 4. Depakote 1000 mg b.i.d. 5. Zyprexa 30 mg q.h.s. ASSESSMENT: AXIS I 1. Psychotic disorder, not otherwise specified. 2. Polysubstance use disorder. 3. Rule out schizophreniform disorder. AXIS II Deferred. AXIS III None. AXIS IV Stressors are noted for substance abuse issues, current status of mental health. AXIS V Global assessment of functioning of current 25. PLANS: 1. Recommendations for discontinuation of Zyprexa and due to limited benefit achieved at maximum daily dosing. 2. Continuation of all other medications noted. 3. Updated laboratory data including ammonia level, Depakote level, LFTs to be drawn tomorrow morning. 4. Continuation of further titration of lithium carbonate to follow if there is significant improvement throughout the next 24 hours with possible consideration of eventual discontinuation of Depakote if there is beneficial improvement and stabilization noted. However, this will be determined by the receiving physician of care.
[2017-03-16] MEDS: hydrOXYzine Pamoate 25 mg Capsule PO PRN (22:17)
[2017-03-17] MEDS: Benzocaine-Menthol Lozenge 2/Pkg PO PRN (05:01)
[2017-03-17] MEDS: Divalproex (QD) 500 mg ER24 Tablet PO SCH ×2 (07:40→20:18)
[2017-03-17 08:49] LABS: Bilirubin, Direct 0.2 mg/dL (0.0-0.3)
--- NOTE | 2017-03-17 11:12 | PROG NOTE ---
[address] [address] PROGRESS NOTE PATIENT: GIOVANNA BALBUENA : 1995 MR#: [id number] ADMIT: 03/09/2017 JOB ID: [id number] DATE: 03/17/2017 CHIEF COMPLAINT: "My dad came in last night. He brought a card. I really miss him." HISTORY OF PRESENT ILLNESS: As stated above, the patient identified that he did have a visit from his father last evening. I did read through the card which was from various family members. The patient also reflected his pictures that father had printed off and identified that he loves his family deeply. He was able to converse appropriately but continues to be somewhat tangential, loose and disorganized. He went off on tangents discussing the belief that his pet cat is sleeping at the foot of his bed and he has created a sleep place for it. He reportedly did have difficulties last evening with wandering in the hallway per nursing staff report identifying that he was visualizing angels once again on the unit. The patient continues to have perseveration with a belief that there are devils that are on the unit reflecting two separate females on the unit. He has been cooperating with medication administration and I elected to discontinue doses of Zyprexa last evening due to a limited benefit with recommendations of further titration of Haldol and lithium. OBJECTIVE: On mental status examination, the patient was cooperative, polite. He continues to show significant difficulties with some restlessness, tangential speech. His mood is semi euphoric. His affect is congruent. His thought process shows evidence of racing thoughts at times, some loose and disconnected thinking. He is redirectable and has had no evidence of agitation over the past 3-4 days with aggression or comments. He recently had significant relapse of hyperreligious themes, but within the past 24 hours, showed significant return. He denies any suicidal or homicidal ideation. He was alert, oriented to place and person. His insight and judgment are poor. PHYSICAL EXAMINATION: Vital signs of current. Temperature is 35.9, pulse 90, respirations 16, BP 122/81. MEDICATION REVIEW: Includes: 1. Haldol 15 mg b.i.d. 2. [place] carbonate 300 mg b.i.d. 3. Cogentin 1 mg b.i.d. 4. P.r.n. doses of Haldol and Benadryl. 5. Depakote 1000 mg b.i.d. 6. Vistaril 50 mg q.4 hours. ASSESSMENT: AXIS I 1. Psychotic disorder, not otherwise specified. 2. Polysubstance use disorder, including LSD, ecstasy, prescription opiates and amphetamines. 3. Rule out schizophreniform disorder. AXIS II Deferred. AXIS III None. AXIS IV Stressors are noted for continuation of difficulties with mental state, significant substance use pattern. AXIS V Global assessment of functioning of current 25. PLANS: 1. Recommendations for further titration of Haldol to 20 mg b.i.d. 2. Titration of lithium to 600 mg b.i.d. 3. Continuation of Depakote 1000 mg b.i.d. 4. Titration of Haldol to 20 mg b.i.d. 5. Continuation of Cogentin 1 mg b.i.d. 6. Continuation of MR 14 as noted.
[2017-03-17] MEDS: diphenhydrAMINE 50 mg Capsule PO PRN (22:08)
[2017-03-18] MEDS: Divalproex (QD) 500 mg ER24 Tablet PO SCH ×2 (08:24→21:40)
[2017-03-18 10:05] VITALS: BP 112/79; PULSE 115; RESP 20
--- NOTE | 2017-03-18 12:28 | PCM.PNPSY ---
Subjective Date of Service Mar 18, 2017 Subjective I spent 30 minutes both reviewing his treatment plan and providing supportive and educational psychotherapy. I spent more than 50% of the time counseling the patient. I reviewed the treatment plan with the patient and discussed options available including the potential risks, benefits and side effects. I had a very pleasant and easy conversation with him today. He was pleasant and cooperative. Collin reports a decrease of anxiety and an improved mood. He denies auditory hallucinations and the intensity of his pentecostalism delusions has decreased as well. The Staff reports that he has been active and is participating well in one-to-one unit and group activities. He slept 6 hours. He denies medication side effects except he is feeling overly sedated with current doses of Haldol. Patient was able to identify his medications and what they were used to treat. Current Medications Current Medications Haloperidol 20 mg BID PO Last administered on 03/18/17 08:24; Admin Dose 20 MG ; Start 03/17/17 at 20:30 Max Carbonate 600 mg BID PO Last administered on 03/18/17 08:24; Admin Dose 600 MG; Start 03/17/17 at 20:30 Mental Status Exam Appearance: Neat/well groomed Attitude: Pleasant, Cooperative Behavior: No unusual behavior Affect: Well Modulated/Appropriate Mood: Depressed Thought Process/Associations: Goal Directed Speech Production: Normal Speech Rate: Normal Speech Articulation: Normal Thought Content: Worship preoccupation Danger to Self/Suicidal Ideati: None Danger to Others: None Delusions: Paranoid (Endorses), Grandiose (Endorses) Consciousness: Alert Orientation: Person, Place, Date, Situation Memory: Grossly Intact Estimate Intellectual Function: Average Basis for IQ estimate: Awareness current events, Word use/vocabulary, Educational history Attention/Concentration & Cogn: Impaired Insight: Limited Judgement: Limited Mental Health Plan The patient is a 22-year-old male who was admitted through the emergency department after three separate visits in the past four days. The patient reportedly presented with increasing concerns of paranoia, hallucinations, delusions with hyperreligious themes and had noted previous history of psychiatric hospitalization in [place], [place] within the past month. It was felt that the patient was increasingly unsafe in the parents' care. Collin has had marked improvement over the past 72 hours. He is been able To process recent emotional events in his thoughts although continued disorganized Our becoming calmer. He appreciates his current medications [place] AXIS I 1. Psychotic disorder, not otherwise specified. 2. Polysubstance use disorder, including LSD, ecstasy, prescription opiates and amphetamines. 3. Rule out schizophreniform disorder. AXIS II Deferred. AXIS III None. AXIS IV Stressors are noted for continuation of difficulties with mental state, significant substance use pattern. AXIS V Global assessment of functioning of current 35. Treatments Patient is being provided with a high degree of safety through the structure and active adult engagement. We will focus on developing improved coping skills and identifying stressors that may have led to current episode. We will attempt to: Integrate into therapeutic groups, milieu and individual therapy. Maintain in a closely monitored and structured unit Provide low-stimulation environment Obtain collateral data to assist in treatment planning Assess degree of lability of affect and impulse control Complete safety plan Decrease frequency of relapse and need for re-hospitalization Denies thoughts of harm to self and/or others Establish a consistent sleep pattern Medication effective in stabilization of mood and/or thought process Reduce the risk of imminent harm to self and/or others by providing a safe environment Tolerates medication without side effects Patient will be on the following psychiatric medications: 1. Decrease Haldol from 15 mg b.i.d. to 10 mg twice a day 2. Max carbonate 300 mg b.i.d. 3. Cogentin 1 mg b.i.d. Labs: Education: Educate patient about recreational drug use as an etiology Educate about metabolic etiologies related to obesity Address patient's legal status Patient is on a 14 day involuntary treatment hold. Christian Smith MD Mar 18, 2017 12:28
[2017-03-18] MEDS: Alum-Mag Hydrox-Simeth 30 mL Suspension PO PRN (15:03)
[2017-03-18] MEDS: hydrOXYzine Pamoate 25 mg Capsule PO PRN (21:42)
[2017-03-19] MEDS: Alum-Mag Hydrox-Simeth 30 mL Suspension PO PRN ×2 (09:02→19:03)
[2017-03-19] MEDS: Divalproex (QD) 500 mg ER24 Tablet PO SCH ×2 (09:22→20:21)
[2017-03-19] MEDS: hydrOXYzine Pamoate 25 mg Capsule PO PRN (09:22)
[2017-03-19 09:51] VITALS: BP 113/78; PULSE 88; RESP 16
--- NOTE | 2017-03-19 12:06 | PCM.PNPSY ---
Subjective Date of Service Mar 19, 2017 Subjective I spent 30 minutes both reviewing his treatment plan and providing supportive and educational psychotherapy. I spent more than 50% of the time counseling the patient. I reviewed the treatment plan with the patient and discussed options available including the potential risks, benefits and side effects. I had another very pleasant and easy conversation with him today. Collin reports a decrease of anxiety and an improved mood. He denies auditory hallucinations and the intensity of his congregational delusions has decreased as well. The Staff reports that he has been active and is participating well in one-to-one unit and group activities. He slept 6 hours. He denies medication side effects and reports feeling less sedated with decreased dose of Haldol 03/18/2017. Patient was able to identify his medications and what they were used to treat. Current Medications Current Medications Haloperidol 10 mg BID PO Last administered on 03/19/17 09:22; Admin Dose 10 MG ; Start 03/18/17 at 20:30 Haloperidol 20 mg BID PO Last administered on 03/18/17 08:24; Admin Dose 20 MG ; Start 03/17/17 at 20:30; Stop 03/18/17 at 12:30; Status DC [place] Carbonate 600 mg BID PO Last administered on 03/19/17 09:22; Admin Dose 600 MG; Start 03/17/17 at 20:30 Mental Status Exam Vital Signs Vital Signs Date Time Temp Pulse Resp B/P Pulse Ox O2 Delivery O2 Flow Rate FiO2 03/19/17 09:51 36.2 88 16 113/78 Appearance: Neat/well groomed Attitude: Pleasant, Cooperative Behavior: No unusual behavior Affect: Well Modulated/Appropriate Mood: Depressed Thought Process/Associations: Goal Directed Speech Production: Normal Speech Rate: Normal Speech Articulation: Normal Thought Content: Christian preoccupation Danger to Self/Suicidal Ideati: None Danger to Others: None Delusions: Paranoid (Endorses), Grandiose (Endorses) Consciousness: Alert Orientation: Person, Place, Date, Situation Memory: Grossly Intact Estimate Intellectual Function: Average Basis for IQ estimate: Awareness current events, Word use/vocabulary, Educational history Attention/Concentration & Cogn: Impaired Insight: Limited Judgement: Limited Mental Health Plan The patient is a 22-year-old male who was admitted through the emergency department after three separate visits in the past four days. The patient reportedly presented with increasing concerns of paranoia, hallucinations, delusions with hyperreligious themes and had noted previous history of psychiatric hospitalization in [place], [place] within the past month. It was felt that the patient was increasingly unsafe in the parents' care. Collin has had marked improvement over the past 72 hours. He is been able To process recent emotional events in his thoughts although continued disorganized Our becoming calmer. He appreciates his current medications Collin continues to make gradual but steady progress. He has a marked decrease in psychotic As well as anxiety symptoms. [place] AXIS I 1. Psychotic disorder, not otherwise specified. 2. Polysubstance use disorder, including LSD, ecstasy, prescription opiates and amphetamines. 3. Rule out schizophreniform disorder. AXIS II Deferred. AXIS III None. AXIS IV Stressors are noted for continuation of difficulties with mental state, significant substance use pattern. AXIS V Global assessment of functioning of current 35. Treatments Patient is being provided with a high degree of safety through the structure and active adult engagement. We will focus on developing improved coping skills and identifying stressors that may have led to current episode. We will attempt to: Integrate into therapeutic groups, milieu and individual therapy. Maintain in a closely monitored and structured unit Provide low-stimulation environment Obtain collateral data to assist in treatment planning Assess degree of lability of affect and impulse control Complete safety plan Decrease frequency of relapse and need for re-hospitalization Denies thoughts of harm to self and/or others Establish a consistent sleep pattern Medication effective in stabilization of mood and/or thought process Reduce the risk of imminent harm to self and/or others by providing a safe environment Tolerates medication without side effects Patient will be on the following psychiatric medications: 1. Haldol 10 mg twice a day 2. [place] carbonate 600 mg b.i.d. 3. Cogentin 1 mg b.i.d. 4. Depakote 1000 mg twice a day Labs: Last valproate level 129 Education: Educate patient about recreational drug use as an etiology Educate about metabolic etiologies related to obesity Address patient's legal status Patient is on a 14 day involuntary treatment hold. Christian Smith MD Mar 19, 2017 12:06
[2017-03-19] MEDS: Magnesium Hydroxide 10 mL Oral Concentration PO PRN (20:37)
[2017-03-20] MEDS: Divalproex (QD) 500 mg ER24 Tablet PO SCH ×2 (08:30→20:30)
[2017-03-20 12:26] VITALS: BP 115/77; PULSE 86; RESP 18
--- NOTE | 2017-03-20 12:58 | PCM.PNPSY ---
Subjective Date of Service Mar 20, 2017 Subjective I spent 30 minutes both reviewing his treatment plan and providing supportive and educational psychotherapy. I spent more than 50% of the time counseling the patient. I reviewed the treatment plan with the patient and discussed options available including the potential risks, benefits and side effects. I had another very easy conversation with him today. Collin reports a decrease of anxiety and an improved mood. He denies auditory hallucinations and the intensity of his cheondoism delusions has decreased as well. The Staff reports that he has been active and is participating well in one-to-one unit and group activities. He slept 6 hours. He complained of medication side effects to Haldol and Depakote (decreased energy, headache, heartburn, blurred vision, restlessness). He reported feeling less sedated with decreased dose of Haldol 03/18/2017 (15 mg twice a day to 10 mg twice per day). Patient was able to identify his medications and what they were used to treat. Current Medications Current Medications Haloperidol 10 mg BID PO Last administered on 03/20/17t 11:54; Admin Dose 10 MG ; Start 03/18/17 at 20:30 Mental Status Exam Appearance: Neat/well groomed Attitude: Pleasant, Cooperative Behavior: No unusual behavior Affect: Well Modulated/Appropriate Mood: Dysthymic Thought Process/Associations: Goal Directed Speech Production: Normal Speech Rate: Normal Speech Articulation: Normal Thought Content: Sikh preoccupation Danger to Self/Suicidal Ideati: None Danger to Others: None Delusions: Paranoid (Endorses), Grandiose (Endorses) Consciousness: Alert Orientation: Person, Place, Date, Situation Memory: Grossly Intact Estimate Intellectual Function: Average Basis for IQ estimate: Awareness current events, Word use/vocabulary, Educational history Attention/Concentration & Cogn: Impaired Insight: Limited Judgement: Limited Mental Health Plan The patient is a 22-year-old male who was admitted through the emergency department after three separate visits in the past four days. The patient reportedly presented with increasing concerns of paranoia, hallucinations, delusions with hyperreligious themes and had noted previous history of psychiatric hospitalization in [place], [place] within the past month. It was felt that the patient was increasingly unsafe in the parents' care. Collin has had marked improvement over the past 72 hours. He is been able To process recent emotional events in his thoughts although continued disorganized Our becoming calmer. He appreciates his current medications Collin continues to make gradual but steady progress. He has a marked decrease in psychotic As well as anxiety symptoms. He was reluctant to taking medications today. With encouragement from myself and staff are JASMIN Perkins he was willing to take his Haldol. He has a medication override due to previous violent behavior here on the unit when he was paranoid. I am asking staff to give him the medication IM if he refuses to take it by mouth. [place] AXIS I 1. Psychotic disorder, not otherwise specified. 2. Polysubstance use disorder, including LSD, ecstasy, prescription opiates and amphetamines. 3. Rule out schizophreniform disorder. AXIS II Deferred. AXIS III None. AXIS IV Stressors are noted for continuation of difficulties with mental state, significant substance use pattern. AXIS V Global assessment of functioning of current 35. Treatments Patient is being provided with a high degree of safety through the structure and active adult engagement. We will focus on developing improved coping skills and identifying stressors that may have led to current episode. We will attempt to: Integrate into therapeutic groups, milieu and individual therapy. Maintain in a closely monitored and structured unit Provide low-stimulation environment Obtain collateral data to assist in treatment planning Assess degree of lability of affect and impulse control Complete safety plan Decrease frequency of relapse and need for re-hospitalization Denies thoughts of harm to self and/or others Establish a consistent sleep pattern Medication effective in stabilization of mood and/or thought process Reduce the risk of imminent harm to self and/or others by providing a safe environment Tolerates medication without side effects Patient will be on the following psychiatric medications: 1. Haldol 10 mg twice a day 2. [place] carbonate 600 mg b.i.d. 3. Cogentin 1 mg b.i.d. 4. Depakote 1000 mg twice a day Labs: Last valproate level 129 Education: Educate patient about recreational drug use as an etiology Educate about metabolic etiologies related to obesity Address patient's legal status Patient is on a 14 day involuntary treatment hold. Christian Smith MD Mar 20, 2017 12:58
[2017-03-20] MEDS: Alum-Mag Hydrox-Simeth 30 mL Suspension PO PRN (17:00)
[2017-03-21] MEDS: Magnesium Hydroxide 10 mL Oral Concentration PO PRN ×2 (02:17→13:01)
[2017-03-21] MEDS: Alum-Mag Hydrox-Simeth 30 mL Suspension PO PRN ×2 (02:17→11:34)
[2017-03-21] MEDS: hydrOXYzine Pamoate 25 mg Capsule PO PRN (02:17)
[2017-03-21] MEDS: Divalproex (QD) 500 mg ER24 Tablet PO SCH (08:30)
[2017-03-21 09:23] VITALS: BP 122/79; PULSE 109; RESP 16
[2017-03-21] MEDS: Valproic Acid 50 mg/mL 5 mL Solution PO SCH (17:04)
[2017-03-21] MEDS ORDERED: Valproic Acid 50 mg/mL 5 mL Solution PO SCH (21:00)
--- NOTE | 2017-03-21 22:09 | PCM.PNPSY ---
Subjective Date of Service March 21, 2017 Subjective "How long do I have to remain here on medication?" Patient went on to talk about his cousin Marcin providing culinary meal planning for him. He reported that he was feeling that he was a "catalyst for violent actions" on the unit. He stated that he would like to be a like a little bird and "fly on my own." He reports that his memory is coming back but is still having blurred vision. He reported feeling that two of the female patients were "like vipers, nipping at my heels." He reported having difficult taking Depakote pills but was agreeable to taking liquid. Sleep: 4 hours Appetite: okay Suicidal and homicidal ideation: denies Auditory hallucinations: denies Visual hallucinations: denies Other Psychotic Symptoms: thought disorganization, feeling overwhelmed by the presence of others. Anxiety: "stressed" Depression: 03/30 Current Medications Current Medications Valproic Acid 500 mg DAILY PO Last administered on 03/21/17t 17:04; Admin Dose 500 MG; Start 03/21/17 at 13:10 Mental Status Exam Appearance: Neat/well groomed Attitude: Cooperative, Guarded Behavior: Overtly anxious Affect: Blunted Mood: Dysthymic, Anxious Thought Process/Associations: Loose, Tangential Speech Production: Paucity Speech Rate: Lags/Latency Speech Articulation: Normal Thought Content: Sabianism preoccupation Danger to Self/Suicidal Ideati: None Danger to Others: None Delusions: Paranoid (Endorses), Grandiose (Endorses) Hallucinations: Auditory (Denies), Visual (Denies) Consciousness: Alert Orientation: Person, Place, Date, Situation Memory: Grossly Intact Estimate Intellectual Function: Average Basis for IQ estimate: Awareness current events, Word use/vocabulary, Educational history Attention/Concentration & Cogn: Impaired Insight: Limited Judgement: Limited Mental Health Plan The patient is a 22-year-old male admitted through the emergency department after three separate visits in the four days preceding admission. The patient reportedly presented with increasing concerns of paranoia, hallucinations, delusions with hyperreligious themes and had noted previous history of psychiatric hospitalization in [place], [place] within the past month. It was felt that the patient was increasingly unsafe in the parents' care and was subsequently detained. The patient had shown some improvement with addition of lithium to haloperidol 20mg bid, but dose of haloperidol was decreased due to side effect reports. Patient appears to have had some return of symptoms and may need increase of haloperidol. Patient reporting difficulty with valproic acid and so will switch tp liquid as part of cross-taper to lithium. [place] AXIS I 1. Psychotic disorder, not otherwise specified. 2. Polysubstance use disorder, including LSD, ecstasy, prescription opiates and amphetamines. 3. Rule out schizophreniform disorder. AXIS II Deferred. AXIS III None. AXIS IV Stressors are noted for continuation of difficulties with mental state, significant substance use pattern. AXIS V Global assessment of functioning of current 30. Medications 1. Haldol 10 mg twice a day 2. [place] carbonate 600 mg b.i.d. 3. Cogentin 1 mg b.i.d. 4. Depakote 1000 mg twice a day Treatments 1. The patient is admitted to the inpatient unit and will be provided a safe and secure environment. 2. The patient is denying current active suicidality and is not in need of a one-to-one at this time. 3. The patient is encouraged to participate with group and milieu activities. 4. The patient will be seen by the treatment team on a daily basis to assess symptoms, side effects and response to treatment. 5. Continue current medication. 6. Change valproic acid to liquid 500mg daily and 1000mg nightly and taper as tolerated 7. Consider increasing haloperidol to 15mg twice daily 8. [place] level on 03/23/17. 9. Anticipated length of stay 10-14 days. Дмитрий Ferrer MD March 21, 2017 22:09 Address patient's legal status Patient is on a 14 day involuntary treatment hold. Дмитрий Ferrer MD March 21, 2017 22:09
[2017-03-22] MEDS: Valproic Acid 50 mg/mL 5 mL Solution PO SCH (09:41)
[2017-03-22 10:03] VITALS: BP 114/81; PULSE 110; RESP 19
[2017-03-22] MEDS: hydrOXYzine Pamoate 25 mg Capsule PO PRN (16:15)
[2017-03-22] MEDS: Alum-Mag Hydrox-Simeth 30 mL Suspension PO PRN (20:00)
[2017-03-22] MEDS ORDERED: Valproic Acid 50 mg/mL 5 mL Solution PO ONE (21:00)
--- NOTE | 2017-03-22 22:02 | PCM.PNPSY ---
Subjective Date of Service March 22, 2017 Subjective The patient reports that the morning started out well but he began to think about his great grandmother and grandfather and how he did not have closure with them. He reports that he "built a ship to take the hurt away...made out of ice and cups of water." The patient later reported that he believed a previous doctor had made a duplicate of him in a female gender. He also reported entering a parallel universe where he had resurrected his " self." Patient closed by saying he thought he should be discharged on Tuesday. Sleep: 7 hours, "like a baby" Appetite: no appetite, but eating. Suicidal and homicidal ideation: denies Auditory hallucinations: denies Visual hallucinations: denies Other Psychotic Symptoms: thought disorganization, delusions. Anxiety: "low" Depression: "not struggling with that." Current Medications Current Medications Haloperidol 20 mg HS PO Last administered on 03/22/17 19:54; Admin Dose 20 MG; Start 03/22/17 at 21:00 Valproic Acid 500 mg DAILY PO Last administered on 03/22/17 09:41; Admin Dose 500 MG; Start 03/21/17 at 13:10 Valproic Acid 500 mg HS ONCE PO Last administered on 03/22/17 19:54; Admin Dose 500 MG; Start 03/22/17 at 21:00; Stop 03/22/17 at 21:01; Status DC Valproic Acid 1,000 mg HS PO Last administered on 03/21/17 21:55; Admin Dose 1, 000 MG; Start 03/21/17 at 21:00; Stop 03/22/17 at 16:15; Status DC Mental Status Exam Appearance: Neat/well groomed Attitude: Cooperative, Guarded Behavior: Overtly anxious Affect: Blunted Mood: Dysthymic, Anxious Thought Process/Associations: Loose, Tangential Speech Production: Paucity Speech Rate: Lags/Latency Speech Articulation: Normal Thought Content: Episcopalian preoccupation, Perseveration Danger to Self/Suicidal Ideati: None Danger to Others: None Delusions: Paranoid (Endorses), Grandiose (Endorses) Hallucinations: Auditory (Denies), Visual (Denies) Consciousness: Alert Orientation: Person, Place, Date, Situation Memory: Grossly Intact Estimate Intellectual Function: Average Basis for IQ estimate: Awareness current events, Word use/vocabulary, Educational history Attention/Concentration & Cogn: Impaired Insight: Limited Judgement: Limited Mental Health Plan The patient is a 22-year-old male admitted through the emergency department after three separate visits in the four days preceding admission. The patient reportedly presented with increasing concerns of paranoia, hallucinations, delusions with hyperreligious themes and had noted previous history of psychiatric hospitalization in [place], [place] within the past month. It was felt that the patient was increasingly unsafe in the parents' care and was subsequently detained. The patient had shown some improvement with addition of lithium to haloperidol 20mg bid, but dose of haloperidol was decreased due to side effect reports. Patient reporting less difficulty with valproic acid liquid as part of cross-taper to lithium. Patient quite delusional with limited to no insight and in need of increase in antipsychotic. [place] AXIS I 1. Psychotic disorder, not otherwise specified. 2. Polysubstance use disorder, including LSD, ecstasy, prescription opiates and amphetamines. 3. Rule out schizophreniform disorder. AXIS II Deferred. AXIS III None. AXIS IV Stressors are noted for continuation of difficulties with mental state, significant substance use pattern. AXIS V Global assessment of functioning of current 30. Medications 1. Haldol 10 mg twice a day 2. [place] carbonate 600 mg b.i.d. 3. Cogentin 1 mg b.i.d. 4. Depakote 500mg daily and 1000 mg nightly Treatments 1. The patient is admitted to the inpatient unit and will be provided a safe and secure environment. 2. The patient is denying current active suicidality and is not in need of a one-to-one at this time. 3. The patient is encouraged to participate with group and milieu activities. 4. The patient will be seen by the treatment team on a daily basis to assess symptoms, side effects and response to treatment. 5. Continue current medication. 6. Change valproic acid to liquid 500mg daily and 500mg nightly and taper as tolerated 7. Increase haloperidol to 10mg daily and 20mg nightly 8. [place] level on 03/23/17. 9. Anticipated length of stay 10-14 days. Дмитрий Ferrer MD March 22, 2017 22:02
[2017-03-23] MEDS: Valproic Acid 50 mg/mL 5 mL Solution PO SCH (09:17)
[2017-03-23 09:27] LABS: BASOPHILS % (AUTO) 0.5 % (0-3); EOSINOPHILS % (AUTO) 5.3 % (0-5); MONOCYTES % (AUTO) 9.8 % (4-12); Mean Corpuscular Hemoglobin 29.6 pg (27.0-35.0); Mean Corpuscular Volume 86.1 fL (81-100); NEUTROPHILS % (AUTO) 66.2 % (40-74); Platelet Count 137 bil/L (150-400)
[2017-03-23 12:15] VITALS: BP 113/67; PULSE 76; RESP 16
--- NOTE | 2017-03-23 21:28 | PCM.PNPSY ---
Subjective Date of Service March 23, 2017 Subjective The patient reports that he is still having some difficulty with the Depakene but informed patient that his lithium level was 1.0 and we could proceed with full discontinuation. Patient still rather latent, distracted, but appears more alert today with better eye contact. Asked about previous report of parallel universes and he stated that he could not simply look into a parallel universe. He reported having some blurred vision and requested that medications be moved to bedtime as much as possible. Sleep: 8+ hours Appetite: good Suicidal and homicidal ideation: denies Auditory hallucinations: denies Visual hallucinations: denies Other Psychotic Symptoms: disorganized, delusional, but decreased. Anxiety: 2/10 Depression: 0/10 Current Medications Current Medications Docusate Sodium 250 mg BID PO Last administered on 03/23/17 09:18; Admin Dose 250 MG; Start 03/22/17 at 20:30 Haloperidol 10 mg DAILY PO Last administered on 03/23/17 09:18; Admin Dose 10 MG ; Start 03/23/17 at 08:30 Haloperidol 20 mg HS PO Last administered on 03/22/17 19:54; Admin Dose 20 MG; Start 03/22/17 at 21:00 Valproic Acid 500 mg HS ONCE PO Last administered on 03/22/17 19:54; Admin Dose 500 MG; Start 03/22/17 at 21:00; Stop 03/22/17 at 21:01; Status DC Mental Status Exam Appearance: Neat/well groomed Attitude: Cooperative, Guarded Behavior: Other (decreased arm movements) Affect: Blunted Mood: Dysthymic, Anxious Thought Process/Associations: Loose, Tangential Speech Production: Paucity Speech Rate: Lags/Latency Speech Articulation: Normal Thought Content: Buddhist preoccupation, Perseveration Danger to Self/Suicidal Ideati: None Danger to Others: None Delusions: Paranoid (Endorses) Hallucinations: Auditory (Denies), Visual (Denies) Consciousness: Alert Orientation: Person, Place, Date, Situation Memory: Grossly Intact Estimate Intellectual Function: Average Basis for IQ estimate: Awareness current events, Word use/vocabulary, Educational history Attention/Concentration & Cogn: Impaired Insight: Limited Judgement: Limited Result Diagram: 03/23/1715 03/23/17914 Mental Health Plan The patient is a 22-year-old male admitted through the emergency department after three separate visits in the four days preceding admission. The patient reportedly presented with increasing concerns of paranoia, hallucinations, delusions with hyperreligious themes and had noted previous history of psychiatric hospitalization in [place], [place] within the past month. It was felt that the patient was increasingly unsafe in the parents' care and was subsequently detained. The patient had shown some improvement with addition of lithium to haloperidol 20mg bid, but dose of haloperidol was decreased due to side effect reports. Patient appears more linear and alert with increase in haloperidol and reduction in valproic acid. lithium level 1.0. Patient less delusional with limited to no insight, hoping for discharge this week. [place] AXIS I 1. Psychotic disorder, not otherwise specified. 2. Polysubstance use disorder, including LSD, ecstasy, prescription opiates and amphetamines. 3. Rule out schizophreniform disorder. AXIS II Deferred. AXIS III None. AXIS IV Stressors are noted for continuation of difficulties with mental state, significant substance use pattern. AXIS V Global assessment of functioning of current 30. Medications 1. Haldol 10 mg daily and 20mg nightly 2. [place] carbonate 600 mg b.i.d. 3. Cogentin 1 mg b.i.d. 4. Depakote 500mg twice daily. Treatments 1. The patient is admitted to the inpatient unit and will be provided a safe and secure environment. 2. The patient is denying current active suicidality and is not in need of a one-to-one at this time. 3. The patient is encouraged to participate with group and milieu activities. 4. The patient will be seen by the treatment team on a daily basis to assess symptoms, side effects and response to treatment. 5. Continue current medication except discontinue valproic acid. 6. Anticipated length of stay 10-14 days. Дмитрий Ferrer MD March 23, 2017 21:28 9. Anticipated length of stay 10-14 days. Дмитрий Ferrer MD March 23, 2017 21:28
[2017-03-24 08:50] VITALS: BP 112/82; PULSE 97; RESP 19
[2017-03-24] MEDS: Alum-Mag Hydrox-Simeth 30 mL Suspension PO PRN (14:29)
--- NOTE | 2017-03-24 16:04 | PCM.PNPSY ---
Subjective Date of Service March 24, 2017 Subjective The patient reported that he had put quotations in a "Santorini Box" [paper box with lid] that he had made while in the hospital in [facility], but had remade it as "it was soiled by my roommate who had Alzheimer's" and was incontinent. He stated he would like to put quotes in on paper in all the primary colors. The patient reported again that he had blurry vision and that he was "feeling that my head is up in the clouds a little." He reported that his cat, Margaux, is an oracle and had touched his throat and given him the power to sing well. He reported that at one time he believed that he was Nir Brian and was going through the stations of the [employer]. He reported that his cat had laid on his right arm and taken the tension out of his thumb and when it moved and put it's paws on his left chest there was a flare that came out of it. The patient indicated that he would not use drugs, but then asked about whether he could use psilocybin. Patient stated he did not feel the need for medication, but if we could find one without side effects he would consider it. Sleep: 7+ hours, great Appetite: low, but eating Suicidal and homicidal ideation: denies Auditory hallucinations: denies Visual hallucinations: denies Other Psychotic Symptoms: disorganized, delusional, but decreased. Anxiety: 0/10 Depression: "comes and goes." Current Medications Current Medications Docusate Sodium 250 mg BID PO Last administered on 03/24/17 08:24; Admin Dose 250 MG; Start 03/22/17 at 20:30 Haloperidol 10 mg DAILY PO Last administered on 03/24/17 08:25; Admin Dose 10 MG ; Start 03/23/17 at 08:30; Stop 03/24/17 at 15:07; Status DC Haloperidol 20 mg HS PO Last administered on 03/23/17 21:24; Admin Dose 20 MG; Start 03/22/17 at 21:00; Stop 03/24/17 at 21:01 Valproic Acid 500 mg HS ONCE PO Last administered on 03/22/17 19:54; Admin Dose 500 MG; Start 03/22/17 at 21:00; Stop 03/22/17 at 21:01; Status DC Mental Status Exam Appearance: Neat/well groomed Attitude: Cooperative, Guarded Behavior: Other (decreased arm movements, no dystonia or cogwheeling) Affect: Flat Mood: Dysthymic, Anxious Thought Process/Associations: Loose, Tangential Speech Production: Paucity Speech Rate: Lags/Latency Speech Articulation: Normal Thought Content: Yazidi preoccupation, Perseveration Danger to Self/Suicidal Ideati: None Danger to Others: None Delusions: Paranoid (Endorses) Hallucinations: Auditory (Denies), Visual (Denies) Consciousness: Alert Orientation: Person, Place, Date, Situation Memory: Grossly Intact Estimate Intellectual Function: Average Basis for IQ estimate: Awareness current events, Word use/vocabulary, Educational history Attention/Concentration & Cogn: Impaired Insight: Limited Judgement: Limited Result Diagram: 03/23/1715 03/23/1715 Mental Health Plan The patient is a 22-year-old male admitted through the emergency department after three separate visits in the four days preceding admission. The patient reportedly presented with increasing concerns of paranoia, hallucinations, delusions with hyperreligious themes and had noted previous history of psychiatric hospitalization in [place], [place] within the past month. It was felt that the patient was increasingly unsafe in the parents' care and was subsequently detained. The patient had shown some improvement with addition of lithium to haloperidol 20mg bid, but dose of haloperidol was decreased due to side effect reports. Patient appears more linear and alert with increase in haloperidol and reduction in valproic acid. His most recent [place] level was 1.0. Patient continues less delusional but with limited to no insight, hoping for discharge this week. [place] AXIS I 1. Psychotic disorder, not otherwise specified. 2. Polysubstance use disorder, including LSD, ecstasy, prescription opiates and amphetamines. 3. Rule out schizophreniform disorder. AXIS II Deferred. AXIS III None. AXIS IV Stressors are noted for continuation of difficulties with mental state, significant substance use pattern. AXIS V Global assessment of functioning of current 30. Medications 1. Haldol 10 mg daily and 20mg nightly 2. [place] carbonate 600 mg b.i.d. 3. Cogentin 1 mg b.i.d. 4. Depakote 500mg twice daily. Treatments 1. The patient is admitted to the inpatient unit and will be provided a safe and secure environment. 2. The patient is denying current active suicidality and is not in need of a one-to-one at this time. 3. The patient is encouraged to participate with group and milieu activities. 4. The patient will be seen by the treatment team on a daily basis to assess symptoms, side effects and response to treatment. 5. Will move haloperidol and benztropine to bedtime. 6. Anticipated length of stay 10-14 days. Дмитрий Ferrer MD March 24, 2017 16:04
[2017-03-25] MEDS: Benzocaine-Menthol Lozenge 2/Pkg PO PRN (07:49)
[2017-03-25 09:05] VITALS: BP 117/69; PULSE 70; RESP 16
--- NOTE | 2017-03-25 21:53 | PCM.PNPSY ---
Subjective Date of Service March 25, 2017 Subjective The patient reports that he is still having blurry vision but that his "digestive tract is back on track." The patient reports that he wants no other diagnosis than winter depression. 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 Explained to patient why he is on medications for mood and thought disorder, patient did not appear to process information. He reported that he would like to take low dose medication only as long as required and then stop them. He reported the date as Tuesdayl. Mild cogwheeling on physical exam. Sleep: 7.75+ hours Appetite: "coming back" Suicidal and homicidal ideation: denies Auditory hallucinations/Visual hallucinations: denies Other Psychotic Symptoms: disorganization, poor insight. Anxiety: "non existent" Current Medications Current Medications Benztropine Mesylate 1 mg BID PO Last administered on 03/25/17 20:39; Admin Dose 1 MG; Start 03/25/17 at 11:55 Haloperidol 30 mg HS PO Last administered on 03/25/17 20:39; Admin Dose 30 MG; Start 03/25/17 at 21:00 Psyllium Husk 1 packet BID PO Last administered on 03/25/17 20:41; Admin Dose 1 PACKET; Start 03/24/17 at 20:30 Mental Status Exam Appearance: Neat/well groomed Attitude: Cooperative, Guarded Behavior: Other (decreased arm movements, mild cogwheeling) Affect: Flat Mood: Dysthymic, Anxious Thought Process/Associations: Circumstantial Speech Production: Normal Speech Rate: Lags/Latency Speech Articulation: Normal Thought Content: Perseveration Danger to Self/Suicidal Ideati: None Danger to Others: None Delusions: Paranoid (Endorses) Hallucinations: Auditory (Denies), Visual (Denies) Consciousness: Alert Orientation: Person, Place, Date (February 2017, Tuesday), Situation Memory: Short Term Memory (Impaired) Estimate Intellectual Function: Average Basis for IQ estimate: Awareness current events, Word use/vocabulary, Educational history Attention/Concentration & Cogn: Impaired Insight: Limited Judgement: Limited Result Diagram: 03/23/17 0915 03/23/17 0915 Mental Health Plan The patient is a 22-year-old male admitted through the emergency department after three separate visits in the four days preceding admission. The patient reportedly presented with increasing concerns of paranoia, hallucinations, delusions with hyperreligious themes and had noted previous history of psychiatric hospitalization in [place], [place] within the past month. It was felt that the patient was increasingly unsafe in the parents' care and was subsequently detained. The patient had shown some improvement with addition of lithium to haloperidol 20mg bid, but dose of haloperidol was decreased due to side effect reports. Patient appears more linear and alert with increase in haloperidol and reduction in valproic acid. His most recent [place] level was 1.0. Patient continues less delusional but with limited to no insight, hoping for discharge this week, and when informed only preliminary hearing today, stated next week. Patient still reporting plan to stop medication. [place] AXIS I 1. Psychotic disorder, not otherwise specified. 2. Polysubstance use disorder, including LSD, ecstasy, prescription opiates and amphetamines. 3. Rule out schizophreniform disorder. AXIS II Deferred. AXIS III None. AXIS IV Stressors are noted for continuation of difficulties with mental state, significant substance use pattern. AXIS V Global assessment of functioning of current 30. Medications 1. Haldol 30mg nightly 2. [place] carbonate 600 mg b.i.d. 3. Cogentin 2mg nightly. Treatments 1. The patient is admitted to the inpatient unit and will be provided a safe and secure environment. 2. The patient is denying current active suicidality and is not in need of a one-to-one at this time. 3. The patient is encouraged to participate with group and milieu activities. 4. The patient will be seen by the treatment team on a daily basis to assess symptoms, side effects and response to treatment. 5. Benztropine 1mg po bid for dystonia 6. Combine eskalith 1200mg at bedtime 7. Anticipated length of stay 10-14 days. Дмитрий Ferrer MD March 25, 2017 21:53
--- NOTE | 2017-03-26 15:50 | PCM.PNPSY ---
Subjective Date of Service March 26, 2017 Subjective The patient reports that he is doing "really good". He reports that his mother had recently recounted a dream which she had about him and he identified with it. He went on to talk about his frustration with taking an organic chemistry class which she ultimately had to drop. He reported that on the positive side the other 2 classes he was taking improved as he was able to study better for them. He stated that he would stay away from all psychedelics. He reports that that now also includes psilocybin's. He went on to talk about having a lot of creative thoughts as a child; he told the story of having invented a particular kind of cheap which could climb a mountain before he saw something similar on the [email or web address]. He also stated that when he was between 5 and 7 years old he would see patterns and a popcorn ceiling. He reported being tremulous although no resting or intention tremor was noted of any significance. He reported feeling that he was thinking more clearly. Sleep: 8+ hours Appetite: Reports that the desire to eat is increased. He reports that he is not noting borborygmus and was concerned about this. Suicidal and homicidal ideation: Denies Auditory hallucinations: Denies Visual hallucinations: Denies Other Psychotic Symptoms: Disorganization and tangentiality as noted above. Anxiety: "Normal " Depression: None reported. Current Medications Current Medications Benztropine Mesylate 1 mg BID PO Last administered on 03/26/17 08:39; Admin Dose 1 MG; Start 03/25/17 at 11:55 Haloperidol 30 mg HS PO Last administered on 03/25/17 20:39; Admin Dose 30 MG; Start 03/25/17 at 21:00 Psyllium Husk 1 packet BID PO Last administered on 03/26/17 08:39; Admin Dose 1 PACKET; Start 03/24/17 at 20:30 Mental Status Exam Appearance: Neat/well groomed Attitude: Cooperative Behavior: Overtly anxious (somewhat) Affect: Flat Mood: Anxious Thought Process/Associations: Tangential, Circumstantial Speech Production: Normal Speech Rate: Lags/Latency Speech Articulation: Other (fairly monotone) Thought Content: Perseveration Danger to Self/Suicidal Ideati: None Danger to Others: None Hallucinations: Auditory (Denies), Visual (Denies) Consciousness: Alert Orientation: Person, Place, Situation Memory: Short Term Memory (Impaired) Estimate Intellectual Function: Average Basis for IQ estimate: Awareness current events, Word use/vocabulary, Educational history Attention/Concentration & Cogn: Impaired Insight: Limited Judgement: Limited Result Diagram: 03/23/1715 03/23/17914 Mental Health Plan The patient is a 22-year-old male admitted through the emergency department after three separate visits in the four days preceding admission. The patient reportedly presented with increasing concerns of paranoia, hallucinations, delusions with hyperreligious themes and had noted previous history of psychiatric hospitalization in [place], [place] within the past month. It was felt that the patient was increasingly unsafe in the parents' care and was subsequently detained. The patient had shown some improvement with addition of lithium to haloperidol 20mg bid, but dose of haloperidol was decreased due to side effect reports. Patient appears more linear and alert with increase in haloperidol and reduction in valproic acid. His most recent Aubrey level was 1.0. The patient continues to be less delusional but is still disorganized and tangential. He is reporting tremor and blurred vision as primary side effects. Tremor appeared significantly improved over yesterday. The patient is still focused on discharge as early as possible. [place] AXIS I 1. Psychotic disorder, not otherwise specified. 2. Polysubstance use disorder, including LSD, ecstasy, prescription opiates and amphetamines. 3. Rule out schizophreniform disorder. AXIS II Deferred. AXIS III None. AXIS IV Stressors are noted for continuation of difficulties with mental state, significant substance use pattern. AXIS V Global assessment of functioning of current 30. Medications 1. Haldol 30mg nightly 2. Eskalith 1200 mg nightly 3. Benztropine 1 mg twice daily 4. Docusate 250 mg twice daily 5. Metamucil 1 packet twice daily. Treatments 1. The patient is admitted to the inpatient unit and will be provided a safe and secure environment. 2. The patient is denying current active suicidality and is not in need of a one-to-one at this time. 3. The patient is encouraged to participate with group and milieu activities. 4. The patient will be seen by the treatment team on a daily basis to assess symptoms, side effects and response to treatment. 5. Consider decreasing haloperidol if continues to improve and is exhibiting side effects, at this point he continues to present with a thought disorder, though improved. 6. Anticipated length of stay 10-14 days. Дмитрий Ferrer MD March 26, 2017 15:50
[2017-03-27] MEDS: Benzocaine-Menthol Lozenge 2/Pkg PO PRN (08:18)
[2017-03-27 12:59] VITALS: BP 92/63; PULSE 74; RESP 16
--- NOTE | 2017-03-27 14:13 | PCM.PNPSY ---
Subjective Date of Service March 27, 2017 Subjective I spent 30 minutes both reviewing his treatment plan and providing supportive and educational psychotherapy. I spent more than 50% of the time counseling the patient. I reviewed the treatment plan with the patient and discussed options available including the potential risks, benefits and side effects. I had another very pleasant and easy conversation with him today. Collin reports a decrease of anxiety and an improved mood. He denies auditory hallucinations or amish delusions. The Staff reports that he has been active and is participating well in one-to-one unit and group activities. He slept 8 hours. He denies medication side effects and reports feeling less sedated with decreased dose of Haldol 03/18/2017. Patient was able to identify his medications and what they were used to treat. Current Medications Current Medications Haloperidol 30 mg HS PO Last administered on 03/26/17 20:10; Admin Dose 30 MG; Start 03/25/17 at 21:00 [place] Carbonate 1,200 mg HS PO Last administered on 03/26/17 20:09; Admin Dose 1,200 MG; Start 03/26/17 at 21:00 Mental Status Exam Vital Signs Vital Signs Date Time Temp Pulse Resp B/P Pulse Ox O2 Delivery O2 Flow Rate FiO2 03/27/17 12:59 36.2 74 16 92/63 Appearance: Neat/well groomed Attitude: Cooperative Behavior: Overtly anxious (somewhat) Affect: Flat Mood: Anxious Thought Process/Associations: Tangential, Circumstantial Speech Production: Normal Speech Rate: Lags/Latency Speech Articulation: Other (fairly monotone) Thought Content: Perseveration Danger to Self/Suicidal Ideati: None Danger to Others: None Consciousness: Alert Orientation: Person, Place, Situation Memory: Short Term Memory (Impaired) Estimate Intellectual Function: Average Basis for IQ estimate: Awareness current events, Word use/vocabulary, Educational history Attention/Concentration & Cogn: Impaired Insight: Limited Judgement: Limited Result Diagram: 03/23/1791403/23/17914 Mental Health Plan The patient is a 22-year-old male who was admitted through the emergency department after three separate visits in the past four days. The patient reportedly presented with increasing concerns of paranoia, hallucinations, delusions with hyperreligious themes and had noted previous history of psychiatric hospitalization in [place], [place] within the past month. It was felt that the patient was increasingly unsafe in the parents' care. Collin has had marked improvement over the past week since I have been away. He can now process recent emotional events in his much less disorganized in his thoughts. Collin continues to make gradual but steady progress. He has a marked decrease in psychotic As well as anxiety symptoms. [place] AXIS I 1. Psychotic disorder, not otherwise specified. 2. Polysubstance use disorder, including LSD, ecstasy, prescription opiates and amphetamines. 3. Rule out schizophreniform disorder. AXIS II Deferred. AXIS III None. AXIS IV Stressors are noted for continuation of difficulties with mental state, significant substance use pattern. AXIS V Global assessment of functioning of current 30. Medications 1. Haldol 30mg nightly 2. Eskalith 1200 mg nightly 3. Benztropine 1 mg twice daily 4. Docusate 250 mg twice daily 5. Metamucil 1 packet twice daily. Treatments 1. The patient is admitted to the inpatient unit and will be provided a safe and secure environment. 2. The patient is denying current active suicidality and is not in need of a one-to-one at this time. 3. The patient is encouraged to participate with group and milieu activities. 4. The patient will be seen by the treatment team on a daily basis to assess symptoms, side effects and response to treatment. 5. Consider decreasing haloperidol if continues to improve and is exhibiting side effects, at this point he continues to present with a thought disorder, though improved. 6. Anticipated length of stay 10-14 days. Christian Smith MD March 27, 2017 14:13
[2017-03-28 08:30] VITALS: BP 88/56; PULSE 64; RESP 18
--- NOTE | 2017-03-28 14:15 | PCM.PNPSY ---
Subjective Date of Service March 28, 2017 Subjective I spent 30 minutes both reviewing his treatment plan and providing supportive and educational psychotherapy. I spent more than 50% of the time counseling the patient. I reviewed the treatment plan with the patient and discussed options available including the potential risks, benefits and side effects. I had another very pleasant and easy conversation with him today. Collin reports a decrease of anxiety and an improved mood. He denies auditory hallucinations or bahai delusions. The Staff reports that he has been active and is participating well in one-to-one unit and group activities. He slept 8 hours. He continues to have blurry vision that has improved slightly since moving medications to bedtime. He also states that after he receives his medications at night his hands will shake but once he is relaxed in bed it goes away and is not affecting his sleep. Patient was able to identify his medications and what they were used to treat. Sleep: 8-9 hours, more than he feels like he needs Appetite: good Suicidal and homicidal ideation: denies Auditory hallucinations: denies Visual hallucinations: denies Other Psychotic Symptoms: Anxiety: 0/10 Depression: 0/10 Current Medications Current Medications [place] Carbonate 1,200 mg HS PO Last administered on 03/27/17t 21:32; Admin Dose 1,200 MG; Start 03/26/17 at 21:00 Mental Status Exam Vital Signs Vital Signs Date Time Temp Pulse Resp B/P Pulse Ox O2 Delivery O2 Flow Rate FiO2 03/28/17 08:30 35.8 64 18 88/56 Appearance: Neat/well groomed Attitude: Cooperative Affect: Flat Mood: Dysthymic Thought Process/Associations: Tangential, Circumstantial Speech Production: Normal Speech Rate: Lags/Latency Speech Articulation: Other (fairly monotone) Thought Content: Perseveration Danger to Self/Suicidal Ideati: None Danger to Others: None Consciousness: Alert Orientation: Person, Place, Situation Memory: Short Term Memory (Impaired) Estimate Intellectual Function: Average Basis for IQ estimate: Awareness current events, Word use/vocabulary, Educational history Attention/Concentration & Cogn: Impaired Insight: Limited Judgement: Limited Result Diagram: 03/23/17 0915 03/23/1715 Mental Health Plan The patient is a 22-year-old male who was admitted through the emergency department after three separate visits over the four days prior to admission. The patient reportedly presented with increasing concerns of paranoia, hallucinations, delusions with hyperreligious themes and had noted previous history of psychiatric hospitalization in [place], [place] within the past month. It was felt that the patient was increasingly unsafe in the parents' care. Collin has had marked improvement over the past couple of days. He can now process recent emotional events in his much less disorganized in his thoughts. Collin continues to make gradual but steady progress. He has a marked decrease in psychotic, as well as anxiety symptoms. [place] AXIS I 1. Psychotic disorder, not otherwise specified. 2. Polysubstance use disorder, including LSD, ecstasy, prescription opiates and amphetamines. 3. Rule out schizophreniform disorder. AXIS II Deferred. AXIS III None. AXIS IV Stressors are noted for continuation of difficulties with mental state, significant substance use pattern. AXIS V Global assessment of functioning of current 30. Medications 1. Haldol 25mg nightly 2. Eskalith 1200 mg nightly 3. Benztropine 1 mg twice daily 4. Docusate 250 mg twice daily 5. Metamucil 1 packet twice daily. Treatments 1. The patient is admitted to the inpatient unit and will be provided a safe and secure environment. 2. The patient is denying current active suicidality and is not in need of a one-to-one at this time. 3. The patient is encouraged to participate with group and milieu activities. 4. The patient will be seen by the treatment team on a daily basis to assess symptoms, side effects and response to treatment. 5. Decreasing haloperidol by 5mg to 25 mg tonight, with the plan to decrease further to 20mg nightly. This is in effort to decrease side effect of blurry vision in hopes of increasing med compliance while still helping to control psychosis. 6. Anticipated length of stay 10-14 days. Attending Statement I met with the patient and reviewed course and record with Dr. Flores. I would agree with her assessment and plan. Trista Flores DO March 28, 2017 14:15 Christian Smith MD March 28, 2017 14:43
--- NOTE | 2017-03-29 11:05 | PCM.PNPSY ---
Subjective Date of Service March 29, 2017 Subjective I spent 30 minutes both reviewing his treatment plan and providing supportive and educational psychotherapy. I spent more than 50% of the time counseling the patient. I had another very pleasant and easy conversation with him today. Collin reports a decrease of anxiety and an improved mood. He denies auditory hallucinations or episcopalian delusions. The Staff reports that he has been active and is participating well in one-to-one unit and group activities. He slept 7 hours. Today his judgment and insight were markedly improved. We were able to have a complete and thorough discussion about the different pressures he faces in his life and the different talents that he has developed. He complained of medication side effects to the Haldol of blurry vision and sedation. Current Medications Current Medications Haloperidol 25 mg HS PO Last administered on 03/28/17 20:32; Admin Dose 25 MG; Start 03/28/17 at 21:00 [place] Carbonate 1,200 mg HS PO Last administered on 03/28/17 20:32; Admin Dose 1,200 MG; Start 03/28/17 at 21:00 Mental Status Exam Appearance: Neat/well groomed Attitude: Pleasant, Cooperative Affect: Flat Mood: Dysthymic Thought Process/Associations: Logical/Sequential, Goal Directed Speech Production: Normal Speech Rate: Normal Speech Articulation: Other (fairly monotone) Thought Content: Appropriate Danger to Self/Suicidal Ideati: None Danger to Others: None Consciousness: Alert Orientation: Person, Place, Date, Situation Memory: Short Term Memory (Impaired) Estimate Intellectual Function: Average Basis for IQ estimate: Awareness current events, Word use/vocabulary, Educational history Attention/Concentration & Cogn: Impaired Insight: Limited Judgement: Limited Result Diagram: 03/23/17 0915 03/23/17 0915 Mental Health Plan The patient is a 22-year-old male who was admitted through the emergency department after three separate visits in the past four days. The patient reportedly presented with increasing concerns of paranoia, hallucinations, delusions with hyperreligious themes and had noted previous history of psychiatric hospitalization in [place], [place] within the past month. It was felt that the patient was increasingly unsafe in the parents' care. Collin continues to show marked improvement over the past 72 hours. He can now process recent emotional events. His thoughts are more organized in his judgment and insight appear to be nearing baseline. Collin continues to make gradual but steady progress. [place] AXIS I 1. Psychotic disorder, not otherwise specified. 2. Polysubstance use disorder, including LSD, ecstasy, prescription opiates and amphetamines. 3. Rule out schizophreniform disorder. AXIS II Deferred. AXIS III None. AXIS IV Stressors are noted for continuation of difficulties with mental state, significant substance use pattern. AXIS V Global assessment of functioning of current 35. Medications 1. Haldol 25mg nightly 2. Eskalith 1200 mg nightly 3. Benztropine 1 mg twice daily 4. Docusate 250 mg twice daily 5. Metamucil 1 packet twice daily. Treatments 1. The patient is admitted to the inpatient unit and will be provided a safe and secure environment. 2. The patient is denying current active suicidality and is not in need of a one-to-one at this time. 3. The patient is encouraged to participate with group and milieu activities. 4. The patient will be seen by the treatment team on a daily basis to assess symptoms, side effects and response to treatment. 5. Decreasing haloperidol by 5mg to 25 mg tonight, with the plan to decrease further to 20mg nightly. This is in effort to decrease side effect of blurry vision in hopes of increasing med compliance while still helping to control psychosis. 6. Anticipated length of stay 3-5 days. Christian Smith MD March 29, 2017 11:04
[2017-03-29 15:11] VITALS: BP 99/59; PULSE 66; RESP 16
[2017-03-30] MEDS: Magnesium Hydroxide 10 mL Oral Concentration PO PRN (09:59)
[2017-03-30 10:17] VITALS: BP 105/65; PULSE 72; RESP 16
--- NOTE | 2017-03-30 15:57 | PCM.PNPSY ---
Subjective Date of Service March 30, 2017 Subjective I spent 30 minutes both reviewing his treatment plan and providing supportive and educational psychotherapy. I spent more than 50% of the time counseling the patient. I had a pleasant and easy conversation with him today while he was resting in bed. Collin reports a no anxiety and an improved mood. He denies auditory hallucinations or mu-ism delusions. The Staff reports that he has been active and is participating well in one-to-one unit and group activities. He slept > 8 hours and is about to take a nap as he feels very tired. Today his judgment and insight were markedly improved. He complained of medication side effects to the Haldol of blurry vision which has improved with the decrease down to 25mg nightly. He noticed the improvement while playing cards last night. He is still unable to read the fine print in a magazine though. He continues to feel excessively tired. He has been having some GI upset again. He has noticed that he has had thoughts of recalled conversations from the day time when he is about to go to sleep at night. He does not find these commanding or disturbing in any way. Sleep: 8+ hours Appetite: good Suicidal and homicidal ideation: denies Auditory hallucinations: denies Visual hallucinations: denies Other Psychotic Symptoms: denies Anxiety: 0/10 Depression: only seasonally Current Medications Current Medications Haloperidol 20 mg HS PO Last administered on 03/29/17 20:40; Admin Dose 25 MG; Start 03/28/17 at 21:00 [place] Carbonate 1,200 mg HS PO Last administered on 03/29/17 20:43; Admin Dose 1,200 MG; Start 03/28/17 at 21:00 Mental Status Exam Vital Signs Vital Signs Date Time Temp Pulse Resp B/P Pulse Ox O2 Delivery O2 Flow Rate FiO2 03/30/17 10:17 36.2 72 16 105/65 Appearance: Neat/well groomed Attitude: Pleasant, Cooperative Affect: Flat Mood: Dysthymic Thought Process/Associations: Logical/Sequential, Goal Directed Speech Production: Normal Speech Rate: Normal Speech Articulation: Other (fairly monotone) Thought Content: Appropriate Danger to Self/Suicidal Ideati: None Danger to Others: None Consciousness: Alert Orientation: Person, Place, Date, Situation Memory: Short Term Memory (Impaired) Estimate Intellectual Function: Average Basis for IQ estimate: Awareness current events, Word use/vocabulary, Educational history Attention/Concentration & Cogn: Impaired Insight: Limited Judgement: Limited Mental Health Plan The patient is a 22-year-old male who was admitted through the emergency department after three separate visits over the four days prior to admission. The patient reportedly presented with increasing concerns of paranoia, hallucinations, delusions with hyperreligious themes and had noted previous history of psychiatric hospitalization in [place], [place] within the past month. It was felt that the patient was increasingly unsafe in the parents' care. Collin has had marked improvement over the past couple of days. He can process recent emotional events in his much less disorganized in his thoughts. Collin continues to make gradual but steady progress. He has a marked decrease in psychotic, and no current anxiety symptoms. [place] AXIS I 1. Psychotic disorder, not otherwise specified. 2. Polysubstance use disorder, including LSD, ecstasy, prescription opiates and amphetamines. 3. Rule out schizophreniform disorder. AXIS II Deferred. AXIS III None. AXIS IV Stressors are noted for continuation of difficulties with mental state, significant substance use pattern. AXIS V Global assessment of functioning of current 35. Medications 1. Haldol 20mg nightly 2. Eskalith 1200 mg nightly 3. Benztropine 1 mg twice daily 4. Docusate 250 mg twice daily 5. Metamucil 1 packet twice daily. Treatments 1. The patient is admitted to the inpatient unit and will be provided a safe and secure environment. 2. The patient is denying current active suicidality and is not in need of a one-to-one at this time. 3. The patient is encouraged to participate with group and milieu activities. 4. The patient will be seen by the treatment team on a daily basis to assess symptoms, side effects and response to treatment. 5. Decreasing haloperidol by 5mg to 20 mg tonight. This is in effort to decrease side effect of blurry vision in hopes of increasing med compliance while still helping to control psychosis. 6. Anticipated length of stay 2-4 days. Attending Statement I met w patient and agree w DR Danae Rubio/Trista Randall DO March 30, 2017 15:57 Christian Smith MD March 30, 2017 16:08
--- NOTE | 2017-03-31 13:27 | PCM.PNPSY ---
Subjective Date of Service March 31, 2017 Subjective I spent 30 minutes both reviewing his treatment plan and providing supportive and educational psychotherapy. I spent more than 50% of the time counseling the patient. I had a pleasant and easy conversation with him today. Collin reports a no anxiety and an stable mood. He denies auditory hallucinations or uatsdin delusions. The Staff reports that he has been active and is participating in one-to-one unit and group activities when necessary, otherwise stays in his room. He was observed sitting in community area today. He slept > 8 hours and continues to feel very tired. Today his judgment and insight were markedly improved, his speech has become more clear and his line of thinking more logical. He complained of medication side effects to the Haldol of blurry vision which has improved slightly but not enough with the decrease down to 20mg yesterday. He is still unable to read the fine print in a magazine, and feels like the blurry vision and tiredness would greatly interfere with his ability to attend school and be successful. She additionally feels dehydrated, excessively thirsty, and experiences trembling in his hands at night. He continues to feel excessively tired. He has been having some GI upset again. He prefers milk of magnesia over Colace to treat his constipation. He again states today that they will level of medication he is on is too much. His goal is to long-term be off of medications. engagement liaison Suzi was present for part of our interview today in which she discussed LRO. Collin agrees to be compliant with taking medications during the following 90 days with hopes of tapering off or at least down both the lithium and Haldol. He relates his plan for coping and preventing further mental breakdown is to get adequate sleep. He intends to wind down and night first with reading followed by meditation. Sleep: 8+ hours Appetite: Decreased but eating meals Suicidal and homicidal ideation: denies Auditory hallucinations: denies Visual hallucinations: denies Other Psychotic Symptoms: denies Anxiety: 0/10 Depression: only seasonally Current Medications Current Medications Haloperidol 20 mg HS PO Last administered on 03/30/17t 20:34; Admin Dose 20 MG; Start 03/30/17 at 21:00 [place] (Eskalith) 1200 mg by mouth at bedtime Mental Status Exam Appearance: Neat/well groomed Attitude: Pleasant, Cooperative Affect: Flat Mood: Dysthymic Thought Process/Associations: Logical/Sequential, Goal Directed Speech Production: Normal Speech Rate: Normal Speech Articulation: Other (fairly monotone) Thought Content: Appropriate Danger to Self/Suicidal Ideati: None Danger to Others: None Consciousness: Alert Orientation: Person, Place, Date, Situation Memory: Short Term Memory (Impaired) Estimate Intellectual Function: Average Basis for IQ estimate: Awareness current events, Word use/vocabulary, Educational history Attention/Concentration & Cogn: Impaired Insight: Limited (improved) Judgement: Limited (improved) Mental Health Plan The patient is a 22-year-old male who was admitted through the emergency department after three separate visits over the four days prior to admission. The patient reportedly presented with increasing concerns of paranoia, hallucinations, delusions with hyperreligious themes and had noted previous history of psychiatric hospitalization in [place], [place] within the past month. It was felt that the patient was increasingly unsafe in the parents' care. Collin has had marked improvement during his stay. He can process recent emotional events in his much more logical and organized in his thoughts. Collin continues to make gradual but steady progress. He has a marked decrease in psychotic, and no current anxiety symptoms. [place] AXIS I 1. Psychotic disorder, not otherwise specified. 2. Polysubstance use disorder, including LSD, ecstasy, prescription opiates and amphetamines. 3. Rule out schizophreniform disorder. AXIS II Deferred. AXIS III None. AXIS IV Stressors are noted for continuation of difficulties with mental state, significant substance use pattern. AXIS V Global assessment of functioning of current 35. Medications 1. Haldol 20mg nightly 2. Eskalith 1200 mg nightly 3. Benztropine 1 mg twice daily 4. Docusate 250 mg twice daily 5. Metamucil 1 packet twice daily. Treatments 1. The patient is admitted to the inpatient unit and will be provided a safe and secure environment. 2. The patient is denying current active suicidality and is not in need of a one-to-one at this time. 3. The patient is encouraged to participate with group and milieu activities. 4. The patient will be seen by the treatment team on a daily basis to assess symptoms, side effects and response to treatment. 5. Haloperidol 20 mg tonight. This was decreased in an effort to decrease side effect of blurry vision in hopes of increasing med compliance while still helping to control psychosis. 6. Patient will likely discharge home with his father tomorrow. Attending Statement I met with the patient for a brief one-to-one, I reviewed the case with Dr. Flores and agree with her assessment and plan. Trista Flores DO March 31, 2017 10:53 Christian Smith MD March 31, 2017 17:00
[2017-03-31 14:07] VITALS: BP 90/55; PULSE 64; RESP 16
[2017-04-01 10:09] VITALS: BP 101/58; PULSE 75; RESP 16
[2017-04-01] MEDS ORDERED: BENZ1TAB7 PO (13:00)
[2017-04-01] MEDS ORDERED: HAL5 PO (13:00)
[2017-04-01] MEDS ORDERED: LITH300T PO (13:00)
--- NOTE | 2017-04-01 13:03 | PCM.DIMED ---
Discharge Instructions Date of Service April 01, 2017 Dates of Hospitalization Mar 09, 2017 at 10:51 Discharge Diagnosis Discharge Diagnosis AXIS I 1. Psychotic disorder, not otherwise specified. 2. Polysubstance use disorder, including LSD, ecstasy, prescription opiates and amphetamines. 3. Rule out schizophreniform disorder. AXIS II Deferred. AXIS III None. AXIS IV Stressors are noted for continuation of difficulties with mental state, significant substance use pattern. AXIS V Global assessment of functioning of current 40. Diet No restrictions Activity No restrictions Call your provider Fever or Chills Patient Instructions I Strongly encouraged patient to follow up with outpatient care: 1-Recommended patient takes medication as prescribed and not alter this unless under the direct care of a provider. 1. Haldol 20mg nightly 2. Eskalith 1200 mg nightly 3. Benztropine 1 mg twice daily 4. Docusate 250 mg twice daily 5. Metamucil 1 packet twice daily. 2-Recommend client refrain from recreational drugs and alcohol while taking psychiatric medications. 3-Recommend client start a 12 step program to deal with issues of addiction. 4-Recommend patient attempt to find a therapist or group to deal with impulse control and interpersonal relationship conflicts Follow-up plan Case management of 90 day LR, appointment for outpatient therapy, an appointment with outpatient psychiatric provider per classification case manager AJnikkie note Follow-up with PCP in: 2 weeks Christian Smith MD April 01, 2017 13:02
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
== END 2017-04-01 13:35 | disposition home or self-care (01) | DRG 885 ==
LOC: SED 05:13 → MHC 10:51
PROVIDERS: ADMIT Psychiatry & Neurology Psychiatry; ATTEND Psychiatry & Neurology Psychiatry
DX: F29 Unspecified psychosis not due to a substance or known physiological condition (principal); F16.90 Hallucinogen use, unspecified, uncomplicated; F15.90 Other stimulant use, unspecified, uncomplicated; F11.90 Opioid use, unspecified, uncomplicated